=== PATIENT | female | born 1995 | race African-American/Black ===

== ENCOUNTER 2023-06-22 10:30 | Emergency (ER) | payer BC, SELFPAY ==
[2023-06-22 10:49] VITALS: BP 113/75; PULSE 111; RESP 18; TEMP 37.3; O2SAT 93; BMI 22.6
--- NOTE | 2023-06-22 11:14 | ED.GENADULT ---
HPI - General Adult General Chief complaint: Asthma Stated complaint: trouble breathing- 6 months preg. Time Seen by Provider: 06/22/23 11:12 History of Present Illness HPI narrative: hx asthma, c/o sore throat. using nebulizer . had some prednisone, used the last of it last night. symptoms started tuesday. pt , no concerns today. 27-year-old young woman here with concern of asthma exacerbation. She is also 26 weeks . She has had sore throat. No fever. Symptoms began about 3 days ago. She did start taking some residual prednisone from a prior prescription. Has also been using albuterol nebs and inhaler. Feels that she could use more of this. No abdominal pain. No unusual discharge/bleeding. Here with 2 boys who are sick ultimately who test positive for influenza A at this visit. Here also with sleeping significant other. Related Data Home Medications Medication Instructions Recorded Confirmed 06/22/23 Previous Rx's Medication Instructions Recorded albuterol sulfate 2.5 mg/0.5 mL 2.5 mg (0.5 mL) inhalation Q4H PRN 06/22/23 solution for nebulization #30 ea albuterol sulfate 90 mcg/actuation 2 inh inhalation Q2-3H PRN 06/22/23 aerosol inhaler shortness of breath or wheezing #8.5 grams oseltamivir 75 mg capsule (Tamiflu) 75 mg PO DAILY #7 caps 06/22/23 prednisone 20 mg tablet 40 mg (2 x 20 mg) PO DAILY 4 days 06/22/23 #8 tabs Allergies Allergy/AdvReac Type Severity Reaction Status Date / Time No Known Drug Allergies Allergy Verified 06/22/23 10:54 Review of Systems Status of ROS: Reports: 6 or more systems reviewed and unremarkable except as noted in History and below Exam Narrative: Exam Narrative: Pleasant. NAD but subtly labored in her breathing. Lungs with diffuse wheeze trace crepitus. Heart is in elevated rate and regular rhythm. Oxygen saturation is not at 93% on arrival. Oropharynx is moist. Posterior oropharynx not particular erythematous. Neck is supple without lymphadenopathy. No supraclavicular crepitus. Abdomen is appropriately gravid, nontender. Extremities are well perfused. No significant edema noted. Const: Vital Signs, click to edit/add: Vital Signs - 24 hr 06/22/23 10:49 Temperature 99.1 F Pulse Rate [Pulse Oximeter] 111 H Respiratory Rate 18 Blood Pressure [Ri ght Upper Arm] 113/75 Pulse Oximetry 93 Oxygen Delivery Me thod Room Air Documenting provider has reviewed patient's vital signs: yes Course Vital Signs Vital signs: Initial Vital Signs Temperature 99.1 F 06/22/23 10:49 Temperature Source Temporal Artery Scan 06/22/23 10:49 Pulse Rate 111 H 06/22/23 10:49 Respiratory Rate 18 06/22/23 10:49 Blood Pressure 113/75 06/22/23 10:49 Blood Pressure Mean 87 06/22/23 10:49 Pulse Oximetry 93 06/22/23 10:49 Oxygen Delivery Method Room Air 06/22/23 10:49 Vital Signs Temperature 99.1 F 06/22/23 10:49 Pulse Rate 111 H 06/22/23 10:49 Respiratory Rate 18 06/22/23 10:49 Blood Pressure 113/75 06/22/23 10:49 Pulse Oximetry 93 06/22/23 10:49 Oxygen Delivery Method Room Air 06/22/23 10:49 Temperature 99.1 F 06/22/23 10:49 Pulse Rate 111 H 06/22/23 10:49 Respiratory Rate 18 06/22/23 10:49 Blood Pressure 113/75 06/22/23 10:49 Pulse Oximetry 93 06/22/23 10:49 Oxygen Delivery Method Room Air 06/22/23 10:49 Medications Administered Medications: Discontinued Medications Generic Name Dose Route Start Last Admin Trade Name Freq PRN Reason Stop Dose Admin Albuterol 2.5 mg 06/22/23 11:38 06/22/23 12:02 Albuterol Sulfate 2.5 Mg/3 Ml Vial.Neb NEB 06/22/23 11:39 2.5 mg ONCE ONE Administration Medical Decision Making MDM Narrative Medical decision making narrative: With both children with febrile illness I would anticipate likely viral trigger to asthma, an already known diagnosis. Differential does include pulmonary embolus, pneumothorax, pneumonia, influenza, COVID, RSV. She would like to focus on treatment of asthma related symptoms at this time. Screening has already been done with triple swab for COVID influenza and RSV by the time I am evaluating. Was given an albuterol nebulization. Does feel better on reassessment with oxygen saturations improved to 96%. Still with trace wheeze on reauscultation. Swabs return negative. Swabs are positive though for influenza A for both children. Considering and underlying asthma with exacerbation I would recommend prophylaxis at least with Tamiflu. She is considering, hesitant, and after discussion of pros and cons, ultimately does accept prescription. Will also prescribe refills of albuterol inhaler, nebulization liquid and a course of prednisone. See patient discharge plan further discussion Lab Data Lab results reviewed: Yes I reviewed the patient's lab results Labs: Lab Results 06/22/23 Range/Units 10:39 SARS-CoV-2 (PCR) Negative SARS-CoV-2 (Negative) Influenza Type A (PCR) Negative PCR FLU A (Negative) Influenza Type B (PCR) Negative PCR FLU B (Negative) RSV (PCR) Negative PCR RSV (Negative) Discharge Plan Discharge Clinical Impression: Asthma with acute exacerbation, , Exposure to the flu Patient Disposition: Home, Self-Care Condition: Improved Additional Instructions: focus on hydration. Can take up to 1000 mg of acetaminophen per dose. will be sending an albuterol nebs and inhalers and oseltamivir as discussed. Prescriptions: New oseltamivir [Tamiflu] 75 mg capsule 75 mg PO DAILY Qty: 7 0RF albuterol sulfate 2.5 mg/0.5 mL solution for nebulization 2.5 mg inhalation Q4H PRNQty: 30 0RF Rx Instructions: for up to 3 doses albuterol sulfate 90 mcg/actuation HFA aerosol inhaler 2 inh inhalation Q2-3H PRN (Reason: shortness of breath or wheezing) Qty: 8.5 1RF prednisone 20 mg tablet 40 mg PO DAILY 4 Days Qty: 8 1RF No Action Stand Alone Forms: [employer] Info Instructions
[2023-06-22 11:47] LABS: PCR FLU A Negative PCR FLU A (Negative); PCR FLU B Negative PCR FLU B (Negative); PCR RSV Negative PCR RSV (Negative); SARS PCR* Negative SARS-CoV-2 (Negative)
[2023-06-22] MEDS: ALBUTEROL SULFATE 2.5 MG/3 ML VIAL.NEB NEB (12:02)
== END 2023-06-22 12:39 | disposition home or self-care (01) ==
PROVIDERS: Emergency Provider Family Medicine
DX: J45.901 Unspecified asthma with (acute) exacerbation (principal); Z20.828 Contact with and (suspected) exposure to other viral communicable diseases
CPT/HCPCS: 87631; 94640; 99284

== ENCOUNTER 2024-07-13 09:50 | Emergency (ER) | payer BC, SELFPAY ==
--- OUTSIDE RECORDS SUMMARY | 2024-07-13 09:52 | XMS_ITS | Encounter Summary ---
Author Organization [facility] Address [address] [place] [address] Care Team Providers Care Manager Copy Name Role Phone Mago Jimenez PA-C Primary Care Provider [phone] Mago Jimenez PA-C Unavailable [phone] Twila Gallardo DO Unavailable [phone] Tam Kerns MD Unavailable [phone] Simone Gee MD Unavailable Unavailabl Dedrick Lugo MD Unavailable [phone] Mago Jimenez PA-C Unavailable [phone] No Ref-Primary, Physician Primary Care Provider Reason for Visit * Reason Comments Medication Refill Encounter Details Date Type Department Care Team (Late st Contact Info) Description 05/14/2020 Refill [facility] [address] [place] [phone] Mago Jimenez PA-C [address] [place], [place] [phone] Medication Refill Social History Tobacco Use Types Packs/Day Years Used Date Smoking Tobacco: Never Smokeless Tobacco: Never Alcohol Use Standard Drinks/Week Comments Not Currently 0 (1 standard drink = 0.6 oz pur e alcohol) PHQ-2 Answer Date Recorded PHQ-2 Score 5 08/01/2019 Education Answer Date Recorded What is the highest level of school you have completed or the highest degree you have received? 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 Not on file Not on file documented as of this encounter Plan of Treatment Not on file documented as of this encounter Visit Diagnoses Diagnosis Mild persistent asthma with acute exacerbation Unspecified asthma, with exacerbation documented in this encounter Additional Health Concerns Infection Onset Date Last Indicated Resolved Time Rule Out COVID-19 11/15/2021 11/15/2021 11/15/2021 1:49 AM CDT Rule Out COVID-19 09/01/2023 09/01/2023 09/01/2023 5:19 PM CDT Assessment Noted Time PHQ-9 Depression Total Score: 14 020 7:03 AM CDT documented as of this encounter Care Teams Manager Copy Relationship Specialty Start Date End Date Mago Jimenez PA-C [address] [place] [address] PCP - General Physician Deblocker 04/19/19 01/07/23 No Ref-Primary, Physician PCP - General 01/08/23 Mago Jimenez PA-C [address] [place] [address] Assigned PCP 07/01/19 02/12/22 Twila Gallardo DO [address] [address] Assigned OBGYN Provider 12/21/19 Tam Kerns MD [address] [place] [address] Assigned Surgical Provider 01/23/20 07/24/21 Simone Gee MD Assigned OBGYN Provider 08/17/20 11/22/20 [place] [address] [facility] [place] [address] Assigned OBGYN Provider 11/23/20 Mago Jimenez PA-C [address] [place] [address] Assigned PCP 04/24/22 12/31/22 documented as of this encounter
--- OUTSIDE RECORDS SUMMARY | 2024-07-13 09:52 | XMS_ITS | Encounter Summary ---
Author Organization [facility] Address [address] [place] [address] Care Team Providers Care Lamp Shade Sewer Name Role Phone Kelvin Mario MD Primary Care Provider Encounter Details Date Type Department Care Team (Late st Contact Info) Description 01/12/2012 Correspondence None No Primary/Referring, Phy HME EQUIPMENT SHIP'S ENGINEER TICKET Social History Tobacco Use Types Packs/Day Years Used Date Smoking Tobacco: Never Alcohol Use Standard Drinks/Week Comments Not Asked 0 (1 standard drink = 0.6 oz pur e alcohol) Comments No Sex and Gender Information Value Date Recorded Sex Assigned at Not on file Legal Sex Female 5:22 AM CDT Gender Identity Not on file Sexual Orientation Not on file documented as of this encounter Progress Notes * No Primary/Referring, Phy - 01/12/2012 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
--- OUTSIDE RECORDS SUMMARY | 2024-07-13 09:52 | XMS_ITS | Encounter Summary ---
Author Organization [facility] Address [address] [place] [address] Care Team Providers Care Lockstitch Lining Setter Name Role Phone Mago Jimenez PA-C Primary Care Provider [phone] Mago Jimenez PA-C Unavailable [phone] Tam Kerns MD Unavailable [phone] Mago Jimenez PA-C Unavailable [phone] No Ref-Primary, Physician Primary Care Provider Encounter Details Date Type Department Care Team (Late st Contact Info) Description 07/14/2021 [facility] [address] [place] [phone] Emeli Meeks Social History Tobacco Use Types Packs/Day Years [...] on file 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 Gender Identity Not on file Sexual Orientation Not on file 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 Not on file Not on file documented as of this encounter Plan of Treatment Not on file documented as of this encounter Visit Diagnoses Not on filedocumented in this encounter Additional Health Concerns Infection Onset Date Last Indicated Resolved Time Rule Out COVID-19 11/15/2021 11/15/2021 11/15/2021 1:49 AM CDT Rule Out COVID-19 09/01/2023 09/01/2023 09/01/2023 5:19 PM CDT Assessment Noted Time PHQ-9 Depression Total Score: 14 12/25/2 020 7:03 AM CDT documented as of this encounter Care Teams Lockstitch Lining Setter Relationship Specialty Start Date End Date Mago Jimenez PA-C [address] [facility] [place] [address] PCP - General Physician Director Of Spa And Guest Experience 04/19/19 01/07/23 No Ref-Primary, Physician PCP - General 01/08/23 Mago Jimenez PA-C [address] [place] [address] Assigned PCP 07/01/19 02/12/22 Tam Kerns MD [address] [place] [address] Assigned Surgical Provider 01/23/20 07/24/21 Mago Jimenez PA-C [address] [place] [address] Assigned PCP 04/24/22 12/31/22 documented as of this encounter
--- OUTSIDE RECORDS SUMMARY | 2024-07-13 09:52 | XMS_ITS | Encounter Summary ---
Author Organization [facility] Address [address] [place] [address] Care Team Providers Care Tongue And Quarter Stitcher Name Role Phone Mago Jimenez PA-C Primary Care Provider [phone] Mago Jimenez PA-C Unavailable [phone] Tam Kerns MD Unavailable [phone] Simone Gee MD Unavailable Unavailabl Dedrick Lugo MD Unavailable [phone] Mago Jimenez PA-C Unavailable [phone] No Ref-Primary, Physician Primary Care Provider Encounter Details Date Type Department Care Team (Late st Contact Info) Description 09/04/2020 [facility] [address], [address] [place] [phone] [facility] Social History Tobacco Use Types Packs/Day Years [...] on file 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 Gender Identity Not on file Sexual Orientation [...] documented as of this encounter Care Teams Tongue And Quarter Stitcher Relationship Specialty Start Date End Date Mago Jimenez PA-C [address] [place], [place] [address] PCP - General Physician Commissions Analyst 04/19/19 01/07/23 No Ref-Primary, Physician PCP - General 01/08/23 Mago Jimenez PA-C [address] [place] [address] Assigned PCP 07/01/19 02/12/22 Tam Kerns MD [address] [place] [address] Assigned Surgical Provider 01/23/20 07/24/21 Simone Gee MD Assigned OBGYN Provider 08/17/20 11/22/20 [place] [address] [facility] [place] [phone] Assigned OBGYN Provider 11/23/20 Mago Jimenez PA-C [address] [place], [place] [address] Assigned PCP 04/24/22 12/31/22 documented as of this encounter
--- OUTSIDE RECORDS SUMMARY | 2024-07-13 09:52 | XMS_ITS | Encounter Summary ---
Author Organization [facility] Address [address] [place] [address] Care Team Providers Care Hoop Coiler Name Role Phone Mago Jimenez PA-C Primary Care Provider [phone] Mago Jimenez PA-C Unavailable [phone] Twila Gallardo DO Unavailable [phone] Tam Kerns MD Unavailable [phone] Simone Gee MD Unavailable Unavailabl Dedrick Lugo MD Unavailable [phone] Mago Jimenez PA-C Unavailable [phone] No Ref-Primary, Physician Primary Care Provider Encounter Details Date Type Department Care Team (Late st Contact Info) Description 06/13/2020 [facility] Medical Advice [address] [phone] Yandy Argueta CMA Social History Tobacco Use Types Packs/Day Years [...] on file 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 Gender Identity Not on file Sexual Orientation [...] documented as of this encounter Care Teams Hoop Coiler Relationship Specialty Start Date End Date Mago Jimenez PA-C [address] [place] [address] PCP - General Physician Line Helper 04/19/19 01/07/23 No Ref-Primary, Physician PCP - General 01/08/23 Mago Jimenez PA-C [address] [place] [address] Assigned PCP 07/01/19 02/12/22 Twila Gallardo DO [address] [address] Assigned OBGYN Provider 12/21/19 Tam Kerns MD [address] [place] [address] Assigned Surgical Provider 01/23/20 07/24/21 Simone Gee MD Assigned OBGYN Provider 08/17/20 11/22/20 [place] [address] [facility] [place] [address] Assigned OBGYN Provider 11/23/20 Mago Jimenez PA-C [address] [place] [address] Assigned PCP 04/24/22 12/31/22 documented as of this encounter
--- OUTSIDE RECORDS SUMMARY | 2024-07-13 09:52 | XMS_ITS | Encounter Summary ---
Author Organization [facility] Address [address] [place] [address] Care Team Providers Care Potato Pancake Frier Name Role Phone Johnson Dunn MD Primary Care Provider [phone] Lorna Thurman APRN SALESPERSON WIGS Unavailable Unavailable Clinic - [facility] Primary Care Provider No Ref-Primary, Physician Primary Care Provider Mago Jimenez PA-C Primary Care Provider [phone] Mago Jimenez PA-C Unavailable [phone] Twila Gallardo DO Unavailable [phone] Tam Kerns MD Unavailable [phone] Simone Gee MD Unavailable Unavailabl Dedrick Lugo MD Unavailable [phone] Mago Jimenez PA-C Unavailable [phone] No Ref-Primary, Physician Primary Care Provider Encounter Details Date Type Department Care Team (Late st Contact Info) Description 12/15/2010 [facility] [address] [place] [address] Sadiq Rivera MD [place] [facility] [address] [address] Social History Tobacco Use Types Packs/Day Years Used Date Smoking Tobacco: Never Assessed Comments Unknown Sex and Gender Information Value Date Recorded Sex Assigned at Not on file 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 Gender Identity Not on file Sexual Orientation Not on file documented as of this encounter Last Filed Vital Signs Vital Sign Reading Time Taken Comments Blood Pressure 113/68 11/20/2009 2:57 PM CDT Pulse 84 11/20/2009 2:57 PM CDT Temperature - - Respiratory Rate - - Oxygen Saturation - - Inhaled Oxygen Concentration - - Weight 54.7 kg (120 lb 9.5 oz) 11/20/2009 2:57 P M CDT Height 166.8 cm (5' 5.67) 11/20/2009 2:57 PM CD T Body Mass Index 19.66 11/20/2009 2:57 PM CDT Body Mass Index Percentile 52.19% 11/20/2009 2:5 7 PM CDT Growth Chart: [facility] (Girls, 2- 20 Years) documented in this encounter Plan of Treatment Not on file documented as of this encounter Visit Diagnoses Not on filedocumented in this encounter Additional Health Concerns Infection Onset Date Last Indicated Resolved Time Rule Out COVID-19 11/15/2021 11/15/2021 11/15/2021 1:49 AM CDT Rule Out COVID-19 09/01/2023 09/01/2023 09/01/2023 5:19 PM CDT documented as of this encounter Care Teams Potato Pancake Frier Relationship Specialty Start Date End Date Johnson Dunn MD [address] [phone] PCP - General Pediatrics 12/23/10 10/22/18 [facility] - [facility] [address] [place] [address] PCP - General 10/23/18 10/24/18 No Ref-Primary, Physician PCP - General 10/25/18 04/18/19 Mago Jimenez PA-C [address] [place] [address] PCP - General Physician Dianeticist 04/19/19 01/07/23 No Ref-Primary, Physician PCP - General 01/08/23 Lorna Thurman APRN SALESPERSON WIGS Assigned PCP 06/02/18 06/30/19 Mago Jimenez PA-C [address] [facility] [place] [address] Assigned PCP 07/01/19 02/12/22 Twila Gallardo DO [address] [place] [address] Assigned OBGYN Provider 12/21/19 Tam Kerns MD [address] [place] [address] Assigned Surgical Provider 01/23/20 07/24/21 Simone Gee MD Assigned OBGYN Provider 08/17/20 11/22/20 [place] [address] [facility] [place] [place] [phone] Assigned OBGYN Provider 11/23/20 Mago Jimenez PA-C [address] [facility] [place] [address] Assigned PCP 04/24/22 12/31/22 documented as of this encounter
--- OUTSIDE RECORDS SUMMARY | 2024-07-13 09:52 | XMS_ITS | Encounter Summary ---
Author Organization [facility] Address [address] [place] [address] Care Team Providers Care Germination Testing Manager Name Role Phone Mago Jimenez PA-C Primary Care Provider [phone] Mago Jimenez PA-C Unavailable [phone] Tam Kerns MD Unavailable [phone] Simone Gee MD Unavailable Unavailabl Dedrick Lugo MD Unavailable [phone] Mago Jimenez PA-C Unavailable [phone] No Ref-Primary, Physician Primary Care Provider Encounter Details Date Type Department Care Team (Late st Contact Info) Description 10/08/2020 [facility] Medical Advice [address] [place] [phone] Machelle Miller Social History Tobacco Use Types Packs/Day Years [...] on file 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 Gender Identity Not on file Sexual Orientation [...] documented as of this encounter Care Teams Germination Testing Manager Relationship Specialty Start Date End Date Mago Jimenez PA-C [address] [place], [place] [address] PCP - General Physician Valve Maker 04/19/19 01/07/23 No Ref-Primary, Physician PCP - General 01/08/23 Mago Jimenez PA-C [address] [place] [address] Assigned PCP 07/01/19 02/12/22 Tam Kerns MD [address] [place] [address] Assigned Surgical Provider 01/23/20 07/24/21 Simone Gee MD Assigned OBGYN Provider 08/17/20 11/22/20 [place] [address] [facility] [place] [phone] Assigned OBGYN Provider 11/23/20 Mago Jimenez PA-C [address] [place], [place] [address] Assigned PCP 04/24/22 12/31/22 documented as of this encounter
--- OUTSIDE RECORDS SUMMARY | 2024-07-13 09:52 | XMS_ITS | Encounter Summary ---
Author Organization [facility] Address [address] [place] [address] Care Team Providers Care Sales Representative [employer] Name Role Phone Mago Jimenez PA-C Primary Care Provider [phone] Mago Jimenez PA-C Unavailable [phone] Tam Kerns MD Unavailable [phone] Mago Jimenez PA-C Unavailable [phone] No Ref-Primary, Physician Primary Care Provider Reason for Visit * Reason Comments Medication Refill Encounter Details Date Type Department Care Team (Late st Contact Info) Description 07/11/2021 Refill [facility] [address] [facility] [address] [place] [phone] Mago Jimenez PA-C [address] [place] [address] Medication Refill Social History Tobacco Use Types [...] on file Legal 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 IMPLEMENTATION ADVISOR Gender Identity Not on file Sexual Orientation [...] documented as of this encounter Care Teams Sales Representative [employer] Relationship Specialty Start Date End Date Mago Jimenez PA-C [address] [place] [address] PCP - General Physician Oil Field Rig Builder 04/19/19 01/07/23 No Ref-Primary, Physician PCP - General 01/08/23 Mago Jimenez PA-C [address] [place], [place] [address] Assigned PCP 07/01/19 02/12/22 Tam Kerns MD [address] [place] [address] Assigned Surgical Provider 01/23/20 07/24/21 Mago Jimenez PA-C 290 [place] [address] Assigned PCP 04/24/22 12/31/22 documented as of this encounter
--- OUTSIDE RECORDS SUMMARY | 2024-07-13 09:52 | XMS_ITS | Clinical Summary ---
Author Organization [facility] Address [address] [place] [id number] Care Team Providers Care Student Services Vice President Name Role Phone No Ref-Primary, Physician Primary Care Provider Allergies Active Allergy Reactions Criticality Noted Date Comments Bee Pollen Itching Medium 12/14/2010 Fish-Derived Products Shortness Of Breath High 10/20 Pollen Extract 12/14/2010 Medications Vit-Fe Fumarate-FA ( MULTIVITAMIN W/IRON) 27-0.8 MG tablet Take 1 tablet by mouth daily Active ipratropium - albuterol 0.5 mg/2.5 mg/3 mL (DUONEB) 0.5-2.5 (3) MG/3ML neb solution Take 1 vial (3 mLs) by nebulization every 6 hours as needed for shortness of breath, wheezing or cough 60 mL 3 Active albuterol (PROAIR HFA/PROVENTIL HFA/VENTOLIN HFA) 108 (90 Base) MCG/ACT inhaler Inhale 2 puffs into the lungs every 6 hours as needed for shortness of breath, wheezing or cough Active fluticasone-chidi nterol (BREO ELLIPTA) 200-25 MCG/ACT inhalerIndicatio ns:Mild persistent asthma without complication Inhale 1 puff into the lungs daily 28 each 1 4 Active Active Problems Problem Noted Date Diagnosed Date Moderate persistent asthma with exacerbation 05/2023 Third trimester 09/01/2023 Mild persistent asthma without complication 05/30 Juvenile idiopathic scoliosis 06/26/2018 Gastroesophageal reflux disease without esophagi tis 06/26/2018 Sickle cell trait Resolved Problems Problem Noted Date Diagnosed Date Resolved Date Normal in third trimester 02/12/2019 08/02/2019 Overview (05/23/2019): Boy. Immunizations Immunization Administration Dates Next Due HIB (PRP-T) 12/14/1999, 7,1995,1995 HepB, Unspecified 02/08/1996,1995,10/09/18 96 Historical DTP/aP 11/11/1999, 6,01/22/1996,1995,1995 Hpv, Unspecified 11/15/2008,06/17/2008, 9 Influenza (intradermal) 02/06/2011,01/02,11/15/2008,2006 MMR (MMRII) 01/02/2010,12/14/1999,06/04/1996 Meningococcal,unspecified 04/16/2008 Polio, Unspecified 01/02/2010, 6,1995,1995 Tdap (Adult) Unspecified Formulation 04/16/2008 Varicella (Varivax) 06/04/1996 Family History Medical History Relation Comments Asthma Father Asthma Maternal Grandfather No Known Problems Maternal Grandmother Asthma Mother Hypertension Mother No Known Problems Paternal Grandfather No Known Problems Paternal Grandmother No Known Problems Sister Relation Status Comments Father Alive Maternal Grandfather Maternal Grandmother Mother Alive Paternal Grandfather Paternal Grandmother Sister Alive Social History Tobacco Use Types Packs/Day Years Used Date Smoking Tobacco: Never Smokeless Tobacco: Never Tobacco Cessation:Counseling Given: No Alcohol Use Standard Drinks/Week Comments Not Currently 0 (1 standard drink = 0.6 oz pur e alcohol) PHQ-2 Answer Date Recorded PHQ-2 Score 5 08/01/2019 Adolescent Education Answer Date Record ed Getting School Help Needed Not on file 11/27 Education Answer Date Recorded What is the highest level of school you have completed or the highest degree you have received? 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 Not on file Not on file Last Filed Vital Signs Vital Sign Reading Time Taken Comments Blood Pressure 115/66 09/03/2023 10:00 AM CDT Pulse 105 09/03/2023 10:00 AM CDT Temperature 37 C (98.6 F) 09/03/2023 10:00 AM CDT Respiratory Rate 18 09/03/2023 10:00 AM CDT Oxygen Saturation 92% 09/03/2023 8:20 AM CDT Inhaled Oxygen Concentration - - Weight 75.3 kg (166 lb) 09/01/2023 11:16 PM CDT Height 170.7 cm (5' 7.2) 09/01/2023 11:16 PM CD T Body Mass Index 25.84 09/01/2023 11:16 PM CDT Plan of Treatment Health Maintenance Due Date Last Done Comments ADVANCE CARE PLANNING 1995 ANNUAL REVIEW OF HM ORDERS 1995 ASTHMA ACTION PLAN 1995 YEARLY PREVENTIVE VISIT 08/08/1998 Pneumococcal Vaccine: Pediatrics (0 to 5 Years) and At-Risk Patients (6 to 49 Years) (1 of 2 - PCV) 08/08/2014 ASTHMA CONTROL TEST 06/25/2020 12/26/2019, 04/27/2019, 08/23/2018, Additional history exists COVID-19 Vaccine ( - season) 2023 PHQ-2 (once per calendar year) 2024 12/26/2019, 08/01/2019, 08/01/2019, Additional history exists PAP 06/24/2024 06/24/2021, 11/29, 12/19/2018 INFLUENZA VACCINE (Season Ended) 2024 02/06/2011, 02/06/2011, 01/02/2010, Additional history exists DTAP/TDAP/TD IMMUNIZATION (8 - Td or Tdap) 02/04/2031 02/04/2021, 04/16/2014, 04/16/2008, Additional history exists ZOSTER IMMUNIZATION (1 of 2) 08/08/2045 MENINGITIS IMMUNIZATION Aged Out 04/16/2008 No l onger eligible based on patient's age to complete this topic HPV IMMUNIZATION Completed 11/15/2008, , 04/16/2008 HEPATITIS B IMMUNIZATION Completed 023, 08/24/2022, 02/08/1996, Additional history exists CHLAMYDIA SCREENING Discontinued 12/30/2022, 06/24/2021, 12/19/2018, Additional history exists HEPATITIS C SCREENING Completed 03/23/2023, 023 HIV SCREENING Completed 03/23/2023, 03/2022, 09/24/2020, Additional history exists Procedures Procedure Name Priority Date/Time Associated Diagnosis Comments HIV ANTIGEN ANTIBODY COMBO Routine 12/19/2018 2:57 PM CDT First , second trimester Screen for STD (sexually transmitted disease) PAP IMAGED THIN LAYER SCREEN Routine 12/19/2018 2:54 PM CDT Pap smear for cervical cancer screening CHLAMYDIA TRACHOMATIS PCR Routine 12/19/2018 2:50 PM CDT Screen for STD (sexually transmitted disease) from Last 3 Months or Most Recently Relevant to Health Maintenance Results * HIV Antigen Antibody Combo (12/19/2018 2:57 PM CDT) HIV Antigen Antibody Combo Nonreactive NR^Nonrea ctive 12/20/2018 10:17 AM CDT [facility] Comment:HIV-1 p24 Ag & HIV-1 /HIV-2 Ab Not Detected Blood specimen (specimen) 12/19/2018 2:57 PM CDT 12/19/2018 2:58 PM CDT us Domingo Fishman MD LAB - BLOOD ORDERABLES Final Result [facility] [address] [place] [address] * Pap imaged thin layer screen only - recommended age 21 - 24 years (12/19/2018 2:54 PM CDT) PAP NIL KIRSTIN Rolon Report Patient Name: MAGDIEL AYALA MR#: [id number] Specimen #: [id number] Collected: 12/19/2018 Received: 12/20/2018 Reported: 12/21/2018 13:05 Ordering Phy(s): DOMINGO FISHMAN For improved result formatting, select 'View Enhanced Report Format' under Linked Documents section. SPECIMEN/STAIN PROCESS: Pap imaged thin layer prep screening (Surepath, FocalPoint with guided screening) Pap-Cyto x 1 SOURCE: Cervical, endocervical Pap imaged thin layer prep screening (Surepath, FocalPoint with guided screening) SPECIMEN ADEQUACY: Satisfactory for evaluation. -Transformation zone component present. CYTOLOGIC INTERPRETATION: Negative for intraepithelial lesion or malignancy Electronically signed out by: Jet PATTERSON, (ASCP) CLINICAL HISTORY: LMP: 08/07/2018 , Papanicolaou Test Limitations: Cervical cytology is a screening test with limited sensitivity; regular screening is critical for cancer prevention; Pap tests are primarily effective for the diagnosis/preventi on of squamous cell carcinoma, not adenocarcinomas or other cancers. COLLECTION SITE: Client: [facility] Location: [facility] (B) The technical component of this testing was completed at the [facility], with the professional component performed at the [facility], [address] [place] [id number] ([phone]) [facility] Cytologic material (specimen) 12/19/2018 2:54 PM CDT 12/20/2018 8:52 AM CDT us Domingo Fishman MD LAB - OPT[facility] Gayathri COLMENARES Final Result [facility] * Chlamydia trachomatis PCR (12/19/2018 2:50 PM CDT) Specimen Description Cervix 12/19/2018 3:29 PM CDT [facility] Chlamydia Trachomatis PCR Negative NEG^Negat erasmo 12/20/2018 12:50 PM CDT [facility] Comment: Negative for C. trachomatis rRNA by insurance loss control surveyor mediated amplification. A negative result by insurance loss control surveyor mediated amplification does not preclude the presence of C. trachomatis infection because results are dependent on proper and adequate collection, absence of inhibitors, and sufficient rRNA to be detected. Specimen from uterine cervix (specimen) 12/19/2018 2:50 PM CDT 12/19/2018 3:29 PM CDT Domingo Fishman MD LAB - MICRO GENERAL ORD ERABLES Final Result [facility] [address] [place], [place] [id number] [id number] from Last 3 Months or Most Recently Relevant to Health Maintenance Insurance [employer] [place] Advance Directives For more information, please contact: [phone] * Full Code (Latest Code Status on File) Date Activated Date Inactivated Comments 09/01/2023 11:25 PM 09/03/2023 3:20 PM All basic and advanced life-sustaining interventions are performed as appropriate Question Answer Comments Code status determined by: Discussion with patie nt/ legal decision maker Care Teams Student Services Vice President Relationship Specialty Start Date End Date No Ref-Primary, Physician PCP - General 01/08/23
--- OUTSIDE RECORDS SUMMARY | 2024-07-13 09:52 | XMS_ITS | Clinical Summary ---
Author Organization [facility] Address [address] [place] [address] Care Team Providers Care Wax Pourer Name Role Phone Katlin Borden Marjorie [facility] Unavailable [phone] Dee Ibarra CN Primary Care Provide r Allergies Active Allergy Reactions Criticality Noted Date Comments Bee Pollen Itching Medium 12/14/2010 Fish Containing Products Dyspnea High 10/20/2018 Medications multivitamin () 27 mg iron- 800 mcg folicIndications :Supervision of high risk , antepartum (HC) Take 1 Tablet by mouth once daily with a meal. 60 Tablet 3 4 Active cetirizine (ZYRTEC) 10 mg tabletIndication s:Exacerbation of asthma, unspecified asthma severity, unspecified whether persistent (HC) Take 1 Tablet (10 mg) by mouth once daily. 30 Tablet 4 Active Breast Pump PurchaseIndicati ons: disorder, delivered (HC) Electric breast pump for home use. Gestational age at delivery: term weeks. Reason for need: pumping. Length of need: 99 months (lifetime use) 1 Each 4 Active albuterol-ipratr opium (DUONEB) (2.5-0.5 mg) in 3 mL NEBULIZATION solutionIndicati ons:Asthma with acute exacerbation, unspecified asthma severity, unspecified whether persistent (HC),Moderate persistent asthma with acute exacerbation (HC) Inhale 3 mL via a nebulizer 4 times daily. 540 mL 1 4 Active fluconazole (DIFLUCAN) 150 mg tabletIndication s:Chronic vaginitis,Yeast infection 150 mg tablet by mouth one time. Repeat dose in 3 days. 2 Tablet 4 Active metroNIDAZOLE (FLAGYL) 500 mg tabletIndication s:BV (bacterial vaginosis) Take 1 Tablet (500 mg) by mouth two times daily. 14 Tablet 4 Active fluticasone (50 mcg per actuation) nasal solution (FLONASE)Indicat ions:Seasonal allergies Inhale 2 Sprays in both nostrils once daily. 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 Moderate persistent asthma with acute exacerbati on 06/26/2018 Overview (11/16/2021): 09/24/2020 - albuterol inhaler only (at this time) up to once a day. 09/24/2020 - Family Medicine referral. Asthma 01/23/2002 Overview (09/20/2023): hospitalized >3 times Asthma Action Plan (01/18/07) Asthma Severity: persistent Symptom Triggers: pollens, animal dander, change in weather, exercise, URI and molds/dust GREEN ZONE The GREEN ZONE means take the following medicine(s) every day. Controller Medicine(s)and Dose(s) Advair 100/50, 1 puff twice daily Singulair 5 mg every evening For acute relief of cough and wheezing or before exercise take albuterol inhaler 2 puffs. YELLOW ZONE The YELLOW ZONE means take these medications in addition to your GREEN zone medications to help keep the asthma symptoms from getting worse Reliever Medicine(s) and Dose(s) Albuterol inhaler, 2 puffs every 4-6 hours as needed for cough/wheeze RED ZONE The RED ZONE means start taking your RED ZONE medicine(s) AND call your Doctor NOW! Reliever Medicine(s) and Dose(s) Prednisolone liquid 30 mg twice daily for 5 days PLUS the medications listed in the YELLOW Zone Idiopathic scoliosis and kyphoscoliosis 01/24/20 02 Resolved Problems Problem Noted Date Diagnosed Date Resolved Date headache in third trimester 09/23/2023 10/19/2023 High-risk in third trimester 09/13/2023 10/19/2023 Third trimester 09/01/2023 renal anomaly, single gestation 06/01/2023 10/19/2023 Overview (08/02/2023): Those that may wait to be evaluated by urology consult: Duplicated collecting system without UTD: KENNEDI by PMD 1-6mos. [facility] Supervision of high-risk 03/24/2023 10/19/2023 Overview (08/03/2023): ADDITIONAL SRO GC - Completed [x] Patient name: Magdiel Ayala : 1995 Age: 27 y.o. Date of SRO: 08/03/2023 Estimated Date of Delivery: 09/23/23 Gest Age: 32w5d G/P: Current BMI: REFERRING PROVIDER/CLINIC LOCATION/FAX #: Nataliia Berumen CNM Primary MD approves scheduling of recommended ultrasounds/testing: Not specified Requested Discussion Topics: Hx of two children with duplicate renal arteries. Desires genetic assessment. Please schedule the following: [] Lozano [] Multiples: [] Consult [] Ultrasound: - N/A [] Lab: [x] Genetic Counseling [] Before [] After []15 [] 30 [x]45 []NT []CVS []Amnio [] BMI > 40 [] Instructor Substitute Cosmetology - Language [] [place] Insurance: Location Specialty Days Any [facility] Clinic [x] In-person [x] Virtual [x] Either N/A Comments: Met with MR earlier in preg - now this preg noted to have duplicate renal artery and would like further discussion, possibly plan for testing? RN: Autos Disassembler: GC: Loulou Heath MS, BRYNN MD/Provider: Date:08/03/2023 Urgency: Routine (4-10) [x]Can be sooner [] Can be split Magdiel Ayala : 1995 [facility] ULTRASOUND/TESTING PATIENT Support person name: Instructor Substitute Cosmetology: No ULTRASOUND TYPE: 08/01 growth REASON FOR VISIT: Dilation of the upper/lower pole of the left/right kidney is seen. Suspect duplication of the kidney NEXT VISIT ALERTS: Final MARAI TERESA by Early Ultrasound LMP Date: Patient's last menstrual period was 12/23/2022 (approximate). MARIA TERESA: 09/29/23 Early US: Date: 03/01/23 GA: 10w4d MARIA TERESA: 09/23/23 PrePregnancy Weight: 140 lb Height: 67.5 BMI: 21.62 PLANS & FUTURE APPOINTMENTS: ULTRASOUND/GROWTH PLAN: - Growth: Next TESTING PLAN: - Testing: Through DELIVERY PLAN: - Scheduled delivery: - Preferred delivery location: PRIMARY DIAGNOSIS: 27 y.o. Estimated Date of Delivery: 09/23/23 Depression (Lexapro) Sickle cell trait (FOB negative) Uterine leiomyoma Asthma 2020 Term VAVD 2021 Term (baby with left duplicated renal artery) PREVIOUS ULTRASOUNDS: 08/02/23 32w4d 06/01/23 23w5d EFW 587 grams, percentile: 30. ECHO: REFERRING PHYSICIAN/PHONE/LAST UPDATE: Katlin Borden CNM - Adolph [place] Primary MD approves scheduling of recommended ultrasounds/testing: Yes SPECIALISTS/CONSULTS: Include: Specialty MD Clinic Name Phone# [place] and ADDED TO PATIENT CARE TEAM No GENETICS: NIPT: Low risk female CARE COORDINATION: PERTINENT LABS: Blood type: B Rh Positive Antibody screen: Negative PERTINENT MEDS: Lexapro PROCEDURES: PLAN OF CARE: Original and updated POC 05/31 per RECOMMENDATIONS: -Return to primary provider for continued care. -Follow up ultrasound at 32 weeks to reevaluate left kidney and growth -Patient directed to schedule at the front desk officer on the way out, or to call [facility] within 2 business days to schedule follow up. -A Pediatric Urology consultation will be arranged via the [facility] as needed, following the next ultrasound. . High risk , antepartum 02/04/2023 10/19/2023 Overview (07/05/2023): Images from the original note were not included. Adolph RODRÍGUEZ - at [facility] Name [facility] 27 y.o. Final Estimated Date of Delivery: 09/23/2023 by 10 week ultrasound FOB: Aron sex: _ High Risk? 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) noted at [facility] on 06/01/23 -Follow up ultrasound scheduled for 32w per [facility] -Pediatric urology consult following 32w ultrasound as indicated ([facility] to confirm); surgery may be indicated Overview: GA at 1OB: ~5w6d Blood type: B positive ([facility]) Pre-gravid BMI 21.59, goal TWG 11.5 kg (25 lb)-16 kg (35 lb) at term [facility] consult: No Level 2 anatomy US: No Maternal carrier screens: No genetic screens: No Early GDM screen indicated: No Aspirin 81 mg indicated: No HSV: No Smoker: No Domestic violence: Declines Accepting of blood products: _ Code status: Full Code Imagin03/01/2023: 1st trimester ultrasound. Single living IUP at 10w4d, EDC 09/23/2023. 06/01/2023: Level II [facility]AS. IUP at 23w5d, cephalic presentation. EFW 587g, 30%tile. Possible duplication of collecting system in left kidney. Recommend follow up u/s at 32w to reevaluate left kidney and growth; pediatric urology consult may be indicated after next ultrasound. Vaccines: Flu: _ Pertussis: _ COVID-19: _ Depression Screens: 12/30/2022 1:00 PM 02/02/2023 3:00 PM DOC [facility] PHQ9 TOTAL SCORE PHQ-9 TOTAL SCORE 12 22 Depression Severity Level moderate severe .phq Anxiety Screens: 02/02/2023 3:00 PM MARCOS-7 ANXIETY SCREENING MARCOS date (doc flow) 02/02/2023 Nervous, anxious 3 Cannot stop worrying 3 Worry about different things 3 Cannot relax 3 Feeling restless 0 Easily annoyed/irritated 2 Afraid of awful event 1 Score 15 Severity severe anxiety Immunizations Immunization Administration Dates Next Due DTP 11/11/1999, 6,01/22/1996,1995,1995 HIB HbOC (HibTITER) 12/14/1999, 7,1995,1995 HIB PRP-T (ActHIB,Hiberix) 12/14/1999,,1995,1995 Hep B (Hepatitis B (Adult) Recombinant Adjuvanted) 09/24/2022 Hepatitis B (Adult) 08/24/2022 Hepatitis B (Peds) 02/08/1996,1995, 996 Human Papilloma Virus Vaccin e, Unspecified 11/15/2008,06/17/2008,04/16/2008 Inactivated Polio Vaccine 01/02/2010 Influenza Virus, Unspecified 02/06/2011, 01/02/2010,11/15/2008,2006 Influenza, Intradermal, Quad rivalent, Pf 02/06/2011,01/02/2010,11/15/2008,2006 Influenza,LAIV4 Live Intrana tamara (Flumist) 01/02/2010 MMR 01/02/2010,12/14/1999,06/04/1996 Meningococcal, Unspecified 04/16/2008 Oral Polio Vaccine 02/08/1996,1995, 996 Polio Virus, Unspecified 01/02/2010,01/28,1995,1995 TD, UNSPECIFIED 04/16/2008 Td (Age >=7 Years) 04/16/2008 Td, Preservative Free (age > = 7 Years) 04/16/2014 Tdap 02/04/2021,04/16/2008 Varicella Vaccine 06/04/1996 Family History Medical History Relation Name Comments Asthma Father Asthma Mother Hypertension Mother gestational No Known Problems Sister Clotting disorder No Family History Diabetes No Family History Miscarriages / Stillbirths No Family History Relation Name Status Comments Father Mother Alive Sister Social History Tobacco Use Types Packs/Day Years Used Date Smoking Tobacco: Never Passive Smoke Exposure: Never Smokeless Tobacco: Never Tobacco Cessation:Counseling Given: No Alcohol Use Standard Drinks/Week Comments Not Currently 0 (1 standard drink = 0.6 oz pure alcohol) not since positive test PHQ-2 Answer Date Recorded PHQ-2 TOTAL SCORE 2 11/17/2023 Social Connections Answer Date Recorded Do you often feel lonely or isolated from those around you? 0 09/24/2023 Financial Resource Strain Answer Date R ecorded Difficulty of Paying Living Expenses 2 12/29/2022 Difficulty of Paying Living Expenses 1 12/29/2022 Food Insecurity Answer Date Recorded Do you worry your food will run out before you are able to buy more? 1 09/24/2023 Transportation Needs Answer Date Record ed Does lack of transportation keep you from medica l appointments? 1 09/24/2023 Does lack of transportation keep you from work, meetings or getting things that you need? 1 09/24/2023 Housing Stability Answer Date Recorded What is your housing situation today? 1 09/24/2023 Interpersonal Safety Answer Date Record ed Are you being hit, kicked, p ushed or yelled at (see row info)? No 09/24/2023 Interpersonal Safety Abuse 12 - 18 Not on file 09/24/2023 Interpersonal Safety Ambulatory Vulnerability No t on file 09/24/2023 Utilities Answer Date Recorded Do you have trouble paying f or utilities (for example, heat, electricity, water, phone)? 2 09/24/2023 Comments No Sex and Gender Information Value Date Recorded Sex Assigned at Not on file Legal Sex Female 7:12 AM CONSTRUCTION SUPERVISOR Gender Identity Not on file Sexual Orientation Not on file Obstetrics History Para Term AB IAB SAB Ectopic Multiple Livin g Live Births 4 3 3 0 1 0 0 0 0 3 3 Date Outcome GA Total Labor Labor/2nd/3rd Weight Sex Type Anes PTL Tabitha A1 A5 Name Clin 2019 Term 39w 2d 5h 26m 5h 12m/0h 11m/0h 03m 3.57 kg (7 lb 14 oz) M Vag-Va cuum Epidur al N Livin g 9 9 [facility] [place] Comments:Spontaneous l abor, augmented with Pitocin. Vacuum assisted vaginal delivery at 39w2d. QBL 269 mL. 2019 AB ELECTI VE AB Comments:Pill, no comp lications 2021 Term 40w 1d 17h 31m 17h 16m/0h 10m/0h 05m 4.22 kg (9 lb 4.8 oz) M Vag-Sp ont Epidur al N Livin g 8 8 OGBOI N,BB ROJELIO crowell MD Complications:None Delivery Location:[facility]al ([facility]) Comments:Elective ynes ction. Complicated 2nd degree perineal lac, left labial vulvar hematoma. QBL 400 mL. complications: left duplicated renal artery in fetus, CT during , sickle cell trait (partner/FOB negative), GBS+. 2023 Term 40w 2d 15h 03m 14h 49m/0h 07m/0h 07m 3.54 kg (7 lb 12.9 oz) F Vag-Sp ont Epidur al Livin g 7 9 Miranda Alas i, CNM Complications:Shoulder Dysto fidelina, Intolerance Delivery Location:Hospital ( OKD 2000 L&D TRIAGE) Last Filed Vital Signs Vital Sign Reading Time Taken Comments Blood Pressure 120/76 02/16/2024 2:05 PM CONSTRUCTION SUPERVISOR Pulse 82 02/16/2024 2:05 PM CONSTRUCTION SUPERVISOR Temperature 37.1 C (98.8 F) 09/30/2023 1:30 PM CDT Respiratory Rate 16 02/16/2024 2:05 PM CONSTRUCTION SUPERVISOR Oxygen Saturation 98% 02/16/2024 2:05 PM CONSTRUCTION SUPERVISOR Inhaled Oxygen Concentration - - Weight 72.1 kg (159 lb) 02/16/2024 2:05 PM CONSTRUCTION SUPERVISOR Height 170.2 cm (5' 7) 02/16/2024 2:05 PM CONSTRUCTION SUPERVISOR Body Mass Index 24.9 02/16/2024 2:05 PM CONSTRUCTION SUPERVISOR Plan of Treatment Upcoming Encounters Date Type Department Care Team (Late st Contact Info) Description 07/16/2024 1:30 PM CDT Telemedicine [facility] [address] [place] [address] Betsy More [facility] [address] [place] [address] Health Maintenance Due Date Last Done Comments Pneumococcal series for age 6-49 (1 of 2 - PCV) 08/08/2014 COVID-19 vaccine series ( - season) 2023 Pap test for age 21-65 06/24/2024 2 (Verified in Care Everywhere or Patient Record) Influenza Vaccine (Season Ended) 2024 02/06/2011, 02/06/2011, 01/02/2010, Additional history exists Depression screening for age 12+ 11/16/2024 11/17/19 24 BMI (ht and wt on same day) for age 18+ 02/15/2025 02/16/2024, 11/17/2023, 12/07/2022, Additional history exists Tetanus booster 02/04/2031 02/04/2021, 03/31, 04/16/2008, Additional history exists Tdap Completed 02/04/2021, 04/16/2008 HIV for age 15-65 Completed 03/23/2023, 12/30/2022 Hepatitis C screening for ag e 18-79 Completed 03/23/2023, 12/30/2022 Procedures Procedure Name Priority Date/Time Associated Diagnosis Comments ANTI HIV 1/2 Routine 03/23/2023 2:57 PM CONSTRUCTION SUPERVISOR Supervision of high risk , antepartum (HC) ANTI HCV Routine 03/23/2023 2:57 PM CONSTRUCTION SUPERVISOR Supervision of high risk , antepartum (HC) from Last 3 Months or Most Recently Relevant to Health Maintenance Results * ANTI HCV (03/23/2023 2:57 PM CONSTRUCTION SUPERVISOR) HEPATITIS C ANTIBODY Non-Reacti ve Non-React erasmo 03/23/2023 9:41 PM CONSTRUCTION SUPERVISOR [facility] Comment:Please note, per www .CDC.gov: If a patient is known to be at high risk of HCV infection, or is symptomatic, and the physician's suspicion of HCV infection is high, HCV RNA testing is often employed and is of diagnostic value, even after an initial negative anti-HCV test result. Blood BLOOD SPECIMEN / Unknown Venipuncture / Unknown 03/23/2023 2:57 PM CONSTRUCTION SUPERVISOR 03/23/2023 2:57 PM CONSTRUCTION SUPERVISOR Katlin Borden CNM SEND OUTS Final Re sult Performing Organization Address [facility] Co de Phone Number [facility] [address] [place] [address], * ANTI HIV 1/2 (03/23/2023 2:57 PM CONSTRUCTION SUPERVISOR) Pathologist [facility] HIV-1/HIV-2 SCREEN Non-Reacti ve Non-Reacti ve 03/23/2023 9:28 PM CONSTRUCTION SUPERVISOR [facility] Comment:HIV-1 p24 and HIV-1/ HIV-2 Ab Not Detected. Blood BLOOD SPECIMEN / Unknown Venipuncture / Unknown 03/23/2023 2:57 PM CONSTRUCTION SUPERVISOR 03/23/2023 2:57 PM CONSTRUCTION SUPERVISOR Katlin Borden CNM SEND OUTS Final Re sult Performing Organization Address City/[facility]/ZIP Co de Phone Number [facility] [address] [place] [address], from Last 3 Months or Most Recently Relevant to Health Maintenance [place] [address] [place], [place] [address]CARE ID Advance Directives * Full Code (Latest Code Status on File) Date Activated Date Inactivated Comments 09/24/2023 4:54 PM 09/26/2023 10:38 PM Question Answer Comments Code Status Discussion: Reviewed Preferences Care Teams Wax Pourer Relationship Specialty Start Date End Date Dee Ibarra CNM [address] [place] [address] PCP - General Certified Nurse Assembler [employer] 11/08/23 Katlin Borden CNM [address] [facility] [place] [address] Certified Nurse Assembler [employer] 03/24/23
--- OUTSIDE RECORDS SUMMARY | 2024-07-13 09:52 | XMS_ITS | Encounter Summary ---
Author Organization [facility] Address [address] [place] [address] Care Team Providers Care Cover Cutter Machine Name Role Phone Mago Jimenez PA-C Primary Care Provider [phone] Mago Jimenez PA-C Unavailable Tam Kerns MD Unavailable [phone] Simone Gee MD Unavailable Unavailabl Dedrick Lugo MD Unavailable [phone] Mago Jimenez PA-C Unavailable [phone] No Ref-Primary, Physician Primary Care Provider Encounter Details Date Type Department Care Team (Late st Contact Info) Description 09/24/2020 My[facility] Medical Advice [address] [place] [phone] Daxa Carbajal Social History Tobacco Use Types Packs/Day Years [...] on file Legal 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 MATHEMATICS TECHNICIAN Gender Identity Not on file Sexual Orientation [...] documented as of this encounter Care Teams Cover Cutter Machine Relationship Specialty Start Date End Date Mago Jimenez PA-C [address] [place], [place] [phone] PCP - General Physician Business Test Analyst 04/19/19 01/07/23 No Ref-Primary, Physician PCP - General 01/08/23 Mago Jimenez PA-C [address] [place] [address] Assigned PCP 07/01/19 02/12/22 Tam Kerns MD [address] [place] [address] Assigned Surgical Provider 01/23/20 07/24/21 Simone Gee MD Assigned OBGYN Provider 08/17/20 11/22/20 [place] [address] [facility] [address] [place] [phone] Assigned OBGYN Provider 11/23/20 Mago Jimenez PA-C [address] [place], [place] [address] Assigned PCP 04/24/22 12/31/22 documented as of this encounter
--- OUTSIDE RECORDS SUMMARY | 2024-07-13 09:52 | XMS_ITS | Encounter Summary ---
Author Organization [facility] Address [address] [place] [address] Care Team Providers Care Autopsy Assistant Name Role Phone Kelvin Mario MD Primary Care Provider Encounter Details Date Type Department Care Team (Late st Contact Info) Description 07/11/2002 [facility] [address] [address] Jose Jones MD [address] [place], [place] [address] ASTHMA, UNSPECIFIED Social History Tobacco Use Types Packs/Day Years Used Date Smoking Tobacco: Never Alcohol Use Standard Drinks/Week Comments No 0 (1 standard drink = 0.6 oz pur e alcohol) Comments No Sex and Gender Information Value Date Recorded Sex Assigned at Not on file Legal Sex Female 5:22 AM CDT Gender Identity Not on file Sexual Orientation Not on file documented as of this encounter Plan of Treatment Upcoming Encounters Date Type Department Care Team (Late st Contact Info) Description 07/24/2024 3:00 PM CDT Appointment [facility] [address] [place] [phone] [place] [address] [place], [place] [phone] documented as of this encounter Visit Diagnoses Diagnosis Unspecified asthma(493.90) ([facility]) Unspecified asthma documented in this encounter Care Teams Autopsy Assistant Relationship Specialty [place] [address] [place] [address] PCP - General Family Practice 12/29/23 documented as of this encounter
--- OUTSIDE RECORDS SUMMARY | 2024-07-13 09:52 | XMS_ITS | Encounter Summary ---
Author Organization [facility] Address [address] [place] [address] Care Team Providers Care Necktie Operator Pockets And Pieces Name Role Phone Mago Jimenez PA-C Primary Care Provider [phone] Mago Jimenez PA-C Unavailable [phone] Tam Kerns MD Unavailable [phone] Simone Gee MD Unavailable Unavailabl Dedrick Lugo MD Unavailable [phone] Mago Jimenez PA-C Unavailable [phone] No Ref-Primary, Physician Primary Care Provider Reason for Visit * Reason Comments Medication Refill Encounter Details Date Type Department Care Team (Late st Contact Info) Description 09/23/2020 Refill [facility] [address] [facility] [address] [place] [phone] Mago Jimenez PA-C [address] [place], [place] [phone] Medication Refill Social History Tobacco Use Types [...] on file Legal 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 HOSE MENDER Gender Identity Not on file Sexual Orientation Not on file 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 Mago Jimenez PA-C * Telephone Encounter - Ham Sy RN - 09/24/2020 12:39 PM CDT Pending Prescriptions: Disp Refills albuterol (PROAIR HFA/PROVENTIL HFA/VENTOL*18 g 0 Sig: INHALE 2 PUFFS INTO THE LUNGS EVERY 4 HOURS NEEDED FOR SHORTNESS OF BREATH OR DIFFICULT BREATHING OR WHEEZING Routing refill request to provider for review/approval because: Joann given x1 and patient did not follow up, please advise documented in this encounter Plan of Treatment [...] documented as of this encounter Care Teams Necktie Operator Pockets And Pieces Relationship Specialty Start Date End Date Mago Jimenez PA-C [address] [place] [place] [address] PCP - General Physician Basketballs And Footballs Reverser 04/19/19 01/07/23 No Ref-Primary, Physician PCP - General 01/08/23 Mago Jimenez PA-C [address] [place] [address] Assigned PCP 07/01/19 02/12/22 Tam Kerns MD [address] [place] [address] Assigned Surgical Provider 01/23/20 07/24/21 Simone Gee MD Assigned OBGYN Provider 08/17/20 11/22/20 [place] [address] [facility] [place] [phone] Assigned OBGYN Provider 11/23/20 Mago Jimenez PA-C [address] [place] [address] Assigned PCP 04/24/22 12/31/22 documented as of this encounter
--- OUTSIDE RECORDS SUMMARY | 2024-07-13 09:52 | XMS_ITS | Encounter Summary ---
Author Organization [employer] Address [address] [place] [address] Care Team Providers Care Fishing Hand Name Role Phone Kelvin Mario MD Primary Care Provider Encounter Details Date Type Department Care Team (Late st Contact Info) Description 01/12/2012 Correspondence None No Primary/Referring, Phy DME INSTRUCTION DELIVERY Social History Tobacco Use Types Packs/Day Years [...] Primary/Referring, Phy - 01/12/2012 12:00 AM CST ETES SOLUTIONS SPECIALIST documented in this encounter Plan of Treatment Upcoming Encounters Date Type Department Care Team (Late st Contact Info) Description 07/24/2024 3:00 PM CDT Appointment [facility] [address] [place] [phone] [place] [address] [place], [place] [phone] documented as of this encounter Visit Diagnoses Not on filedocumented in this encounter Care Teams Fishing Hand Relationship Specialty [place] [address] [place] [address] PCP - General Family Practice 12/29/23 documented as of this encounter
--- OUTSIDE RECORDS SUMMARY | 2024-07-13 09:53 | XMS_ITS | Encounter Summary ---
Author Organization [employer] Address [address] [place] [address] Care Team Providers Care Rehabilitation Counselor Name Role Phone Kelvin Mario MD Primary Care Provider Encounter Details Date Type Department Care Team (Late st Contact Info) Description 04/18/2012 Emergency Room External to [facility], Provider ABDOMINAL PAIN Social History Tobacco Use Types Packs/Day Years [...] as of this encounter Progress Notes * [facility], Provider - 04/18/2012 12:00 AM CST ALLY RESPONSIBLE INVESTMENT ADVISER documented in this encounter Plan of Treatment Upcoming Encounters Date Type Department Care Team (Late st Contact Info) Description 07/24/2024 3:00 PM CDT Appointment [facility] [address] [place] [phone] [place] [address] [place], [place] [phone] documented as of this encounter Visit Diagnoses Not on filedocumented in this encounter Care Teams Rehabilitation Counselor Relationship Specialty [place] [address] [place] [address] PCP - General Family Practice 12/29/23 documented as of this encounter
--- OUTSIDE RECORDS SUMMARY | 2024-07-13 09:53 | XMS_ITS | Encounter Summary ---
Author Organization [facility] Address [address] [place] [address] Care Team Providers Care Communication Instructor Name Role Phone Mago Jimenez PA-C Primary Care Provider [phone] Mago Jimenez PA-C Unavailable [phone] Twila Gallardo DO Unavailable [phone] Tam Kerns MD Unavailable [phone] Simone Gee MD Unavailable Unavailabl Dedrick Lugo MD Unavailable [phone] Mago Jimenez PA-C Unavailable [phone] No Ref-Primary, Physician Primary Care Provider Encounter Details Date Type Department Care Team (Late st Contact Info) Description 01/22/2020 MyC Medical Advice [address] [phone] Mireille Hammond, RN Mouth lesion (Primary Dx) Social History Tobacco Use Types Packs/Day Years [...] on file Legal 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 SEED CUTTER Gender Identity Not on file Sexual Orientation Not on file 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 No / Unsure 01/21/2020 10:55 AM SEED CUTTER documented as of this encounter Plan of Treatment Not on file documented as of this encounter Visit Diagnoses Diagnosis Mouth lesion- Primary Other and unspecified diseases of the oral soft tissues documented in this encounter Additional Health Concerns Infection Onset Date Last Indicated Resolved Time Rule Out COVID-19 11/15/2021 11/15/2021 11/15/2021 1:49 AM CDT Rule Out COVID-19 09/01/2023 09/01/2023 09/01/2023 5:19 PM CDT Assessment Noted Time PHQ-9 Depression Total Score: 14 020 7:03 AM CDT documented as of this encounter Care Teams Communication Instructor Relationship Specialty Start Date End Date Mago Jimenez PA-C [address] [place] [address] PCP - General Physician Horse Racetrack Manager 04/19/19 01/07/23 No Ref-Primary, Physician PCP - General 01/08/23 Mago Jimenez PA-C [address] [place] [address] Assigned PCP 07/01/19 02/12/22 Twila Gallardo DO [address] [address] Assigned OBGYN Provider 12/21/19 Tam Kerns MD [address] [place] [address] Assigned Surgical Provider 01/23/20 07/24/21 Simone Gee MD Assigned OBGYN Provider 08/17/20 11/22/20 [place] [address] [facility] [address] Assigned OBGYN Provider 11/23/20 Mago Jimenez PA-C [address] [place] [address] Assigned PCP 04/24/22 12/31/22 documented as of this encounter
--- OUTSIDE RECORDS SUMMARY | 2024-07-13 09:53 | XMS_ITS | Encounter Summary ---
Author Organization [facility] Address [address] [place] [address] Care Team Providers Care Senior International Tax Manager Name Role Phone Mago Jimenez PA-C Primary Care Provider [phone] Mago Jimenez PA-C Unavailable [phone] Twila Gallardo DO Unavailable [phone] Tam Kerns MD Unavailable [phone] Simone Gee MD Unavailable Unavailabl Dedrick Lugo MD Unavailable [phone] Mago Jimenez PA-C Unavailable [phone] No Ref-Primary, Physician Primary Care Provider Encounter Details Date Type Department Care Team (Late st Contact Info) Description 01/21/2020 MyC Medical Advice [facility] [address] [facility] [address] [place] [phone] Mago Jimenez PA-C [address] [place], [place] [phone] Social History Tobacco Use Types Packs/Day Years [...] on file Legal 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 FLAVOR EXTRACTOR Gender Identity Not on file Sexual Orientation Not on file 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 No / Unsure 01/21/2020 10:55 AM FLAVOR EXTRACTOR documented as of this encounter Plan of [...] documented as of this encounter Care Teams Senior International Tax Manager Relationship Specialty Start Date End Date Mago Jimenez PA-C [address] [place] [address] PCP - General Physician Sammying Machine Operator 04/19/19 01/07/23 No Ref-Primary, Physician PCP - General 01/08/23 Mago Jimenez PA-C [address] [place] [address] Assigned PCP 07/01/19 02/12/22 Twila Gallardo DO [address] [address] Assigned OBGYN Provider 12/21/19 Tam Kerns MD [address] [place] [address] Assigned Surgical Provider 01/23/20 07/24/21 Simone Gee MD Assigned OBGYN Provider 08/17/20 11/22/20 [place] [address] [facility] [facility] [place] [address] Assigned OBGYN Provider 11/23/20 Mago Jimenez PA-C [address] [place] [address] Assigned PCP 04/24/22 12/31/22 documented as of this encounter
--- OUTSIDE RECORDS SUMMARY | 2024-07-13 09:53 | XMS_ITS | Encounter Summary ---
Author Organization [facility] Address [address] [place] [address] Care Team Providers Care Development Expert Name Role Phone Kelvin Mario MD Primary Care Provider Encounter Details Date Type Department Care Team (Late st Contact Info) Description 12/25/2003 Hospital External to Johnson Dunn MD [facility] - Narrative Summary Social History Tobacco Use Types Packs/Day Years [...] as of this encounter Progress Notes * Johnson Dunn - 12/25/2003 12:00 AM CDT documented in this encounter Plan of Treatment Upcoming Encounters Date Type Department Care Team (Late st Contact Info) Description 07/24/2024 3:00 PM CDT Appointment [facility] [address] [place] [address] [place] [address] [place], [place] [phone] documented as of this encounter Visit Diagnoses Not on filedocumented in this encounter Care Teams Development Expert Relationship Specialty [place] [address] [place] [address] PCP - General Family Practice 12/29/23 documented as of this encounter
--- OUTSIDE RECORDS SUMMARY | 2024-07-13 09:53 | XMS_ITS | Clinical Summary ---
Author Organization [facility] Address [address] [place] [address] Care Team Providers Care Professional Advisor Name Role Phone Kelvin Mario MD Primary Care Provider [phone] Source Comments You are receiving this document as you are listed as the primary care provider,follow-up provider, or the patient has been referred to you for consultation.This is in compliance with the Medicare andMedicaid EHR Incentive Program,which states Providers who transition their patient to another setting of careor provider of care or refers their patient to another provider of care shouldprovide summary care record for each transition of care or referral. [facility] Allergies Active Allergy Reactions Criticality Noted Date Comments Bee Pollen Itching Medium 12/14/2010 Medications * This document contains information received from the source organization and may not represent a complete record from that organization. omeprazole (AKA PRILOSEC) 20 MG capsuleIndicatio ns:Esophageal reflux 20 mg twice daily for 30 days then 20 mg once a day 60 10 0 Active Additional Information Patient not taking.Reported on 12/02/2023 ALBUterol 2.5 mg/3 mL, 0.083%, nebulizer solutionIndicati ons:Unspecified asthma(493.90) ([facility]) Inhale 3 mL by mouth every 4 hours as needed. 25 Each 3 0 Active hydrocortisone 2.5 % ointmentIndicati ons:Contact dermatitis and other eczema, due to unspecified cause Apply topically 4 times a day as needed. 30 g 4 5 Active budesonide-formo terol (SYMBICORT) 160-4.5 MCG/ACT inhalerIndicatio ns:Moderate persistent asthma, unspecified whether complicated (HRC) Inhale 2 Puffs two times a day. Also 2 puffs qid prn cough max 12 puffs daily (per NHLBI/JUAN F guidelines Dulera or Symbicort required). Rinse mouth/gargle after use. 2 Each 6 4 12/30/19 25 Active montelukast (SINGULAIR) 10 MG tabletIndication s:Asthma, unspecified asthma severity, unspecified whether complicated, unspecified whether persistent (HRC) TAKE 1 TABLET(10 MG) BY MOUTH EVERY EVENING FOR ASTHMA 90 Tablet 3 5 Active hydrOXYzine HCl (ATARAX) 10 MG tabletIndication s:Anxiety (HRC) Take 1-2 Tablets (10-20 mg) by mouth three times a day as needed for Anxiety (or sedation) for up to 60 doses. 90 Tablet 5 Active ALBUterol sulfate HFA (PROAIR HFA) 108 (90 Base) MCG/ACT inhalerIndicatio ns:Asthma Inhale 2 Puffs every 4 hours as needed for Wheezing (cough). also take 15-30 min prior to exercise Indications: Asthma 8.5 g 8 5 Active Active Problems Problem Noted Date Diagnosed Date Migraine headache 12/05/2009 Overview (12/05/2009): Seen by Dr Jose Angel Bedoya, peds neurology on 11/20/[address] [facility] Allergic rhinitis 03/21/2009 Esophageal reflux 08/21/2002 Overview (08/21/2002): grade III reflux normal esophagus stomarch as of 08/08/02 Contact dermatitis and eczema 03/27/2002 Overview (10/20/2016): DERMATITIS NOS(aka ECZEMA) Asthma 01/23/2002 Overview (01/18/2007): hospitalized >3 times Asthma Action Plan (01/18/07) [...] Zone Idiopathic scoliosis and kyphoscoliosis 01/24/20 02 Encounters Date Type Department Care Team Description 05/23/2024 1:00 PM CDT E-Visit [address] [address] Kelvin Mario MD Dx: Asthma, unspecified asthma severity, unspecified whether complicated, unspecified whether persistent (HRC) from Last 3 Months Immunizations Immunization Administration Dates Next Due 4vHPV (Gardasil) 11/15/2008,06/17/2008, 9 DTP 11/11/1999, 6,01/22/1996,1995,1995 Flu Vac (3+ yrs) 02/06/2011,11/15/2008 Flu Vac Preserv Free (3+yrs) 04/18/2006 HepB Adult (Engerix-B, 20+ y rs, 3 dose series) 08/24/2022 HepB Adult (Heplisav-B, 19+ yrs, 2 dose series) 09/24/2022 HepB Ped/Adol (0-18 yrs) 02/08/1996,1995,0 1995 Hib (ActHIB) 08/12/1996 Hib (HbOC) 12/14/1999, 7,1995,1995 IPV (Polio) 01/02/2010 Influenza LAIV3 2-49 years (Flumist) 01/02/2010 MCV4 (Menactra) 04/16/2008 MMR 01/02/2010,12/14/1999,06/04/1996 OPV, Trivalent (Orimune or tOPV) 02/08/1996,11/28,1995 Tdap 02/04/2021,04/16/2008 Varicella 06/04/1996 Family History Medical History Relation Name Comments Migraines Mother Migraines Other aunt Relation Name Status Comments Mother Other Social History Tobacco Use Types Packs/Day Years Used Date Smoking Tobacco: Never Alcohol Use Standard Drinks/Week Comments No 0 (1 standard drink = 0.6 oz pur e alcohol) PHQ-2 Answer Date Recorded PHQ-2 Score 1 12/02/2023 Depression Answer Date Recor ded Last EPDS Total Score 14 04/07/2024 Last EPDS Self Harm Result Not on file 04/07 Comments No Sex and Gender Information Value Date Recorded Sex Assigned at Not on file Legal Sex Female 5:22 AM CDT Gender Identity Not on file Sexual Orientation Not on file Last Filed Vital Signs Vital Sign Reading Time Taken Comments Blood Pressure 116/72 03/16/2024 1:23 PM GRAIN BLENDER Pulse 88 03/16/2024 1:23 PM GRAIN BLENDER Temperature 36.3 C (97.4 F) 12/30/2023 1:22 PM CDT Respiratory Rate 12 04/02/2014 2:29 PM GRAIN BLENDER Oxygen Saturation 95% 01/12/2012 4:33 PM GRAIN BLENDER Inhaled Oxygen Concentration - - Weight 74.4 kg (164 lb) 12/30/2023 1:22 PM CDT Height 168.9 cm (5' 6.5) 07/03/2014 11:11 AM CD T Body Mass Index 26.07 07/03/2014 11:11 AM CDT Plan of Treatment Upcoming Encounters Date Type Department Care Team (Late st Contact Info) Description 07/24/2024 3:00 PM CDT Appointment [address] [address] [place] [address] [place] [address] Health Maintenance Due Date Last Done Comments Cervical Cancer Screening Due 1995 Hep C Screening (Preventive Services) 1995 Asthma ACT (score of 20 or higher) 1999 Adult Preventive Visit 08/08/2013 2, 01/02/2010, 03/11/2004, Additional history exists Pneumococcal Vaccine (1 of 2 - PCV) 08/08/2014 COVID-19 Vaccine (1 - season) 2023 Influenza Vaccine (Season Ended) 2024 02/06/2011, 01/02/2010, 11/15/2008, Additional history exists DTaP/Tdap/Td Vaccine (8 - Tdap) 02/04/2031 02/04/2021, 04/16/2014, 04/16/2008, Additional history exists Zoster/Shingles Vaccine (1 of 2) 08/08/2045 Hib Vaccine Completed 12/14/1999, 07/29, 05/12/1996, Additional history exists MCV4 Vaccine Aged Out 04/16/2008 No longer eligi ble based on patient's age to complete this topic HPV Vaccine Completed 11/15/2008, 05/30, 04/16/2008 IPV (Polio) Vaccine Completed 01/02/2010, 02/08/1996, 1995, Additional history exists HepB Vaccine Completed 09/24/2022, 07/30, 02/08/1996, Additional history exists HIV Screening (Preventive Services) Completed 03/23/2023 Chlamydia Discontinued 05/27/2023, 03/2022, 11/21/2013 (Not Applicable), Additional history exists HepA Vaccine Aged Out No longer eligi ble based on patient's age to complete this topic Meningococcal B Vaccine Aged Out No l onger eligible based on patient's age to complete this topic Procedures Procedure Name Priority Date/Time Associated Diagnosis Comments CHLAMYDIA, URINE (14 YEARS AND OLDER) Routine 08/16/2011 10:00 AM CDT Routine infant or child health check from Last 3 Months or Most Recently Relevant to Health Maintenance Results * CHLAMYDIA, URINE (08/16/2011 10:00 AM CDT) C.trachomatis, Urine Negative NEG [facility]UL[facility] Comment:Test Performed by Tr anscription Mediated Amplification Urine specimen (specimen) 08/16/2011 10:00 AM CDT 08/16/2011 10:04 AM CDT Johnson Dunn MD LAB_[email or web address] Final Result JULIANA [address] [address] from Last 3 Months or Most Recently Relevant to Health Maintenance Insurance [facility] Advance Directives * No Code Status (Latest Code Status on File) Date Activated Date Inactivated Comments 02/18/2004 2:49 PM 02/18/2004 3:49 PM Care Teams Professional Advisor Relationship Specialty [place] [address] [place], [place] [phone] PCP - General Family Practice 12/29/23
--- OUTSIDE RECORDS SUMMARY | 2024-07-13 09:53 | XMS_ITS | Encounter Summary ---
Author Organization [facility] Address [address] [place] [address] Care Team Providers Care Control Systems Developer Name Role Phone Mago Jimenez PA-C Primary Care Provider [phone] Mago Jimenez PA-C Unavailable [phone] Twila Gallardo DO Unavailable [phone] Tam Kerns MD Unavailable [phone] Simone Gee MD Unavailable Unavailabl Dedrick Lugo MD Unavailable [phone] Mago Jimenez PA-C Unavailable [phone] No Ref-Primary, Physician Primary Care Provider Reason for Visit * Reason Onset Date Comments Refill Request 08/05/2019 Encounter Details Date Type Department Care Team (Late st Contact Info) Description 08/05/2019 MyC Refill [facility] [address] 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 No / Unsure 08/01/2019 3:05 PM CDT documented as of this encounter Miscellaneous Notes * Telephone Encounter - Mago Jimenez PA-C - 08/05/2019 8:23 PM CDT Refill already responded by other means. Mago Jimenez PA-C documented in this encounter Plan of Treatment [...] Assessment Noted Time PHQ-9 Depression Total Score: 21 020 7:04 AM CDT documented as of this encounter Care Teams Control Systems Developer Relationship Specialty Start Date End Date Mago Jimenez PA-C [address] [place] [address] PCP - General Physician Grout Pump Operator 04/19/19 01/07/23 No Ref-Primary, Physician PCP - General 01/08/23 Mago Jimenez PA-C [address] [place] [address] Assigned PCP 07/01/19 02/12/22 Twila Gallardo DO [address] [place] [address] Assigned OBGYN Provider 12/21/19 Tam Kerns MD [address] [place] [address] Assigned Surgical Provider 01/23/20 07/24/21 Simone Gee MD Assigned OBGYN Provider 08/17/20 11/22/20 [place] [address] [place] [address] Assigned OBGYN Provider 11/23/20 Mago Jimenez PA-C [address] [facility] [place] [address] Assigned PCP 04/24/22 12/31/22 documented as of this encounter
--- OUTSIDE RECORDS SUMMARY | 2024-07-13 09:53 | XMS_ITS | Encounter Summary ---
Author Organization [facility] Address [address] [place] [address] Care Team Providers Care Fluorescent Lighting Model Maker Name Role Phone Mago Jimenez PA-C Primary Care Provider [phone] Mago Jimenez PA-C Unavailable [phone] Twila Gallardo DO Unavailable [phone] Tam Kerns MD Unavailable [phone] Simone Gee MD Unavailable Unavailabl Dedrick Lugo MD Unavailable [phone] Mago Jimenez PA-C Unavailable [phone] Ref-Primary, Physician Primary Care Provider Reason for Visit * Reason Comments Medication Refill Encounter Details Date Type Department Care Team (Late st Contact Info) Description 12/07/2019 Refill [facility] [address] [facility] [address] [place] [phone] Mago Jimenez PA-C [address] [place], [place] [phone] Medication Refill Social History Tobacco Use Types [...] on file Legal 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 SUPPORT ANALYST Gender Identity Not on file Sexual Orientation Not on file 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 Mago Jimenez PA-C * Telephone Encounter - Ham Sy RN - 12/08/2019 12:40 PM CDT Pending Prescriptions: Disp Refills albuterol (PROAIR HFA/PROVENTIL HFA/VENTOL*18 g 0 Sig: INHALE 2 PUFFS INTO THE LUNGS EVERY 4 HOURS NEEDED FOR SHORTNESS OF BREATH OR DIFFICULT BREATHING OR WHEEZING Routing refill request to provider for review/approval because: Aishwarya given x1 and patient did not follow up, please advise. ACT Total Scores 04/27/2019 ACT TOTAL SCORE (Goal Greater than or Equal to 20) 6 In the past 12 months, how many times did you visit the emergency room for your asthma without being admitted to the hospital? 2 In the past 12 months, how many times were you hospitalized overnight because of your asthma? 1 documented in this encounter Plan of Treatment [...] documented as of this encounter Care Teams Fluorescent Lighting Model Maker Relationship Specialty Start Date End Date Mago Jimenez PA-C [address] [facility] [place] [address] PCP - General Physician Offset Printer 04/19/19 01/07/23 No Ref-Primary, Physician PCP - General 01/08/23 Mago Jimenez PA-C [address] [facility] [place] [address] Assigned PCP 07/01/19 02/12/22 Twila Gallardo DO [address] [place] [address] Assigned OBGYN Provider 12/21/19 Tam Kerns MD [address] [place] [address] Assigned Surgical Provider 01/23/20 07/24/21 Simone Gee MD Assigned OBGYN Provider 08/17/20 11/22/20 [place] [address] [facility] [phone] Assigned OBGYN Provider 11/23/20 Mago Jimenez PA-C [address] [facility] [place] [address] Assigned PCP 04/24/22 12/31/22 documented as of this encounter
--- OUTSIDE RECORDS SUMMARY | 2024-07-13 09:53 | XMS_ITS | Encounter Summary ---
Author Organization [facility] Address [address] [place] [address] Care Team Providers Care C Web Developer Name Role Phone Mago Jimenez PA-C Primary Care Provider [phone] Mago Jimenez PA-C Unavailable [phone] Twila Gallardo DO Unavailable [phone] Tam Kerns MD Unavailable [phone] Simone Gee MD Unavailable Unavailabl e Dedrick Siegel MD Unavailable [phone] Mago Jimenez PA-C Unavailable [phone] No Ref-Primary, Physician Primary Care Provider Encounter Details Date Type Department Care Team (Late st Contact Info) Description 07/12/2019 MyC Medical Advice [facility] [address] [place] [phone] Twila Gallardo DO [address] [place] [address] [address] [place] [address] Social History Tobacco Use Types Packs/Day Years Used Date Smoking Tobacco: Never Smokeless Tobacco: Never Alcohol Use Standard Drinks/Week Comments Not Currently 0 (1 standard drink = 0.6 oz pur e alcohol) PHQ-2 Answer Date Recorded PHQ-2 Score 3 04/27/2019 Education Answer Date Recorded What is the highest level of school you have completed or the highest degree you have received? 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 No / Unsure 06/19/2019 5:31 AM CDT documented as of this encounter Miscellaneous Notes * Telephone Encounter - Loulou Cowan, RN - 07/12/2019 10:31 AM CDT Patient is a 23 year old, . Patient had a vaginal delivery on 06/20/2019 at 39 weeks and 2 days. Patient is mycharting in with severe rectal pain. Loulou Cowan RN on 07/12/2019 at 10:39 AM documented in this encounter Plan of Treatment Not on file documented as of this encounter Visit Diagnoses Not on filedocumented in this encounter Additional Health Concerns Infection Onset Date Last Indicated Resolved Time Rule Out COVID-19 11/15/2021 11/15/2021 11/15/2021 1:49 AM CDT Rule Out COVID-19 09/01/2023 09/01/2023 09/01/2023 5:19 PM CDT Assessment Noted Time PHQ-9 Depression Total Score: 6 04/28/19 20 7:03 AM SALES REPRESENTATIVE [employer] documented as of this encounter Care Teams C Web Developer Relationship Specialty Start Date End Date Mago Jimenez PA-C [address] [place] [address] PCP - General Physician Shop Estimator 04/19/19 01/07/23 No Ref-Primary, Physician PCP - General 01/08/23 Mago Jimenez PA-C [address] [place] [address] Assigned PCP 07/01/19 02/12/22 Twila Gallardo DO [address] [place] [address] Assigned OBGYN Provider 12/21/19 Tam Kerns MD [address] [place], [place] [address] Assigned Surgical Provider 01/23/20 07/24/21 Simone Gee MD Assigned OBGYN Provider 08/17/20 11/22/20 [place] [address] [facility] [phone] Assigned OBGYN Provider 11/23/20 Mago Jimenez PA-C [address] [facility] [place] [address] Assigned PCP 04/24/22 12/31/22 documented as of this encounter
--- OUTSIDE RECORDS SUMMARY | 2024-07-13 09:53 | XMS_ITS | Clinical Summary ---
Author Organization [facility] Address [address] [place] [address] Care Team Providers Care Handle Rounder Operator Name Role Phone Unavailable Primary Care Provider Unavailabl e Source Comments Patient records contain information from all sites at [facility]. For routine questions regarding patient records, call [phone] during business hours, M-F 8:00 AM - 5:00 PM Central Time. Record requests for emergency care only can be directed to [phone] at any time.[facility] Immunizations Immunization Administration Dates Next Due Td Preservative Free (TENIVAC, DECAVAC) 04/16/19 15 Social History Tobacco Use Types Packs/Day Years Used Date Smoking Tobacco: Never Nutrition Answer Date Recorded Nutrition: EVOO Fat Source Unknown 08/17 Nutrition: Servings of Fruits/Vegetables per Day Not on file 08/17/2022 Dental Answer Date Recorded Dental: Regular Dentist Unknown 08/18/19 23 Comments Unknown Sex and Gender Information Value Date Recorded Sex Assigned at Not on file Legal Sex 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 Gender Identity Not on file Sexual Orientation Not on file Last Filed Vital Signs Vital Sign Reading Time Taken Comments Blood Pressure 106/63 04/16/2014 1:14 PM CAT CRACKER OPERATOR Pulse 92 04/16/2014 1:14 PM CAT CRACKER OPERATOR Temperature - - Respiratory Rate - - Oxygen Saturation - - Inhaled Oxygen Concentration - - Weight 60 kg (132 lb 4.4 oz) 04/16/2014 1:14 PM CAT CRACKER OPERATOR Height 168.5 cm (5' 6.34) 04/16/2014 1:14 PM CS T Body Mass Index 21.13 04/16/2014 1:14 PM CAT CRACKER OPERATOR Plan of Treatment Health Maintenance Due Date Last Done Comments Cervical/Vaginal Cancer Screening 1995 HIV Screening 1995 Hepatitis C Screening 1995 COVID-19 Vaccine ( season) 2023 Influenza Vaccine (#1) 2023 1, 02/06/2011, 02/06/2011, Additional history exists Depression Screening (Annual PHQ-2) 02/29/2024 DTaP,Tdap,and Td Vaccines (9 - Td or Tdap) 02/04/2031 02/04/2021, 04/16/2014, 04/16/2008, Additional history exists HPV Vaccines Completed 11/15/2008, 10/29, 06/17/2008, Additional history exists IPV Vaccines Completed 01/02/2010, 06/2009, 02/08/1996, Additional history exists Hepatitis B Screening Discontinued 12/19/2018 Hepatitis B Vaccines Completed 09/24/2022, 08/24/2022, 02/08/1996, Additional history exists Pneumococcal vaccine (0-49 years) Aged Out No longer eligible based on patient's age to complete this topic Insurance [facility]
--- OUTSIDE RECORDS SUMMARY | 2024-07-13 09:53 | XMS_ITS | Encounter Summary ---
Author Organization [facility] Address [address] [place] [address] Care Team Providers Care Dictating Machine Mechanic Name Role Phone Tamera Kiran Lorna Aishwarya AMOS HOT ROLL LAMINATOR Unavailable Unavailable Mago Jimenez PA-C Primary Care Provider [phone] Mago Jimenez PA-C Unavailable [phone] Twila Gallardo DO Unavailable [phone] Tam Kerns MD Unavailable [phone] Simone Gee MD Unavailable Unavailabl Dedrick Lugo MD Unavailable [phone] Mago Jimenez PA-C Unavailable [phone] No Ref-Primary, Physician Primary Care Provider Encounter Details Date Type Department Care Team (Late st Contact Info) Description 06/19/2019 MyC Medical Advice [address] [phone] Miroslava, Hli, DIET COUNSELOR Social History Tobacco Use Types Packs/Day Years [...] on file Legal 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 ONCOLOGY NAVIGATOR Gender Identity Not on file Sexual Orientation [...] AM CDT documented as of this encounter Plan of [...] Total Score: 6 04/28/19 20 7:03 AM ONCOLOGY NAVIGATOR documented as of this encounter Care Teams Dictating Machine Mechanic Relationship Specialty Start Date End Date Mago Jimenez PA-C [address] [place] [address] PCP - General Physician Market Consultant 04/19/19 01/07/23 No Ref-Primary, Physician PCP - General 01/08/23 Lorna Thurman APRN CNP Assigned PCP 06/02/18 06/30/19 Mago Jimenez PA-C [address] [place] [address] Assigned PCP 07/01/19 02/12/22 Twila Gallardo DO [address] [address] Assigned OBGYN Provider 12/21/19 Tam Kerns MD [address] [place] [address] Assigned Surgical Provider 01/23/20 07/24/21 Simone Gee MD Assigned OBGYN Provider 08/17/20 11/22/20 [place] [address] [facility] [place] [phone] Assigned OBGYN Provider 11/23/20 Mago Jimenez PA-C [address] [place] [address] Assigned PCP 04/24/22 12/31/22 documented as of this encounter
--- OUTSIDE RECORDS SUMMARY | 2024-07-13 09:53 | XMS_ITS | Encounter Summary ---
Author Organization [place] Address [address] [place] [address] Care Team Providers Care Associate Professor Name Role Phone Mago Jimenez PA-C Primary Care Provider [phone] Mago Jimenez PA-C Unavailable [phone] Twila Gallardo DO Unavailable [phone] Tam Kerns MD Unavailable [phone] Simone Gee MD Unavailable Unavailabl Dedrick Lugo MD Unavailable [phone] Mago Jimenez PA-C Unavailable [phone] No Ref-Primary, Physician Primary Care Provider Encounter Details Date Type Department Care Team (Late st Contact Info) Description 08/14/2019 [facility] Medical Advice [address] [place] [phone] Gricel Arzola MA Social History Tobacco Use Types Packs/Day Years [...] on file Legal 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 [employer] Gender Identity Not on file Sexual Orientation [...] PM CDT documented as of this encounter Plan [...] documented as of this encounter Care Teams Associate Professor Relationship Specialty Start Date End Date Mago Jimenez PA-C [address] [place] [address] PCP - General Physician Cloth Cutter 04/19/19 01/07/23 No Ref-Primary, Physician PCP - General 01/08/23 Mago Jimenez PA-C [address] [place] [address] Assigned PCP 07/01/19 02/12/22 Twila Gallardo DO [address] [address] Assigned OBGYN Provider 12/21/19 Tam Kerns MD [address] [place] [address] Assigned Surgical Provider 01/23/20 07/24/21 Simone Gee MD Assigned OBGYN Provider 08/17/20 11/22/20 [place] [address] [place] [phone] Assigned OBGYN Provider 11/23/20 Mago Jimenez PA-C [address] [place] [address] Assigned PCP 04/24/22 12/31/22 documented as of this encounter
--- OUTSIDE RECORDS SUMMARY | 2024-07-13 09:53 | XMS_ITS | Encounter Summary ---
Author Organization [facility] Address [address] [place] [address] Care Team Providers Care Tubing Supervisor Name Role Phone Mago Jimenez PA-C Primary Care Provider [phone] Mago Jimenez PA-C Unavailable [phone] Twila Gallardo DO Unavailable [phone] Tam Kerns MD Unavailable [phone] Simone Gee MD Unavailable Unavailabl Dedrick Lugo MD Unavailable [phone] Mago Jimenez PA-C Unavailable [phone] No Ref-Primary, Physician Primary Care Provider Reason for Visit * Reason Onset Date Comments Medication Request 10/29/2019 albuterol Encounter Details Date Type Department Care Team (Late st Contact Info) Description 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 Not on file Not on file documented as of this encounter Miscellaneous Notes * Telephone Encounter - Aicha Gaspar RN - 10/30/2019 3:41 PM CDT Pending Prescriptions: Disp Refills albuterol (PROAIR HFA/PROVENTIL HFA/VENTOL*18 g 3 Sig: Inhale 2 puffs into the lungs every 4 hours as needed for shortness of breath / dyspnea or wheezing Routing refill request to provider for review/approval because: Labs out of range: ACT ACT Total Scores 06/26/2018 08/23/2018 04/27/2019 ACT TOTAL SCORE (Goal Greater than or Equal to 20) 6 5 6 In the past 12 months, how many times did you visit the emergency room for your asthma without being admitted to the hospital? 3 1 2 In the past 12 months, how many times were you hospitalized overnight because of your asthma? 0 0 1 albuterol (PROAIR HFA/PROVENTIL HFA/VENTOLIN HFA) 108 (90 Base) MCG/ACT inhaler 18 g 3 08/21/2019 No Sig - Route: Inhale 2 puffs into the lungs every 4 hours as needed for shortness of breath / dyspnea or wheezing - Inhalation Sent to pharmacy as: Albuterol Sulfate HFA 108 (90 Base) MCG/ACT Aerosol Solution (PROAIR HFA/PROVENTIL HFA/VENTOLIN HFA) Class: E-Prescribe Notes to Pharmacy: Pharmacy may dispense brand covered by insurance (Proair, or proventil or ventolin or generic albuterol inhaler) Order: [id number] E-Prescribing Status: Receipt confirmed by pharmacy (08/21/2019 ??4:00 PM CDT) Aicha Gaspar RN * Telephone Encounter - Ghazal Spann - 10/29/2019 3:03 PM CDT Reason for Call: Medication or medication refill: Do you use a [facility]? Name of the pharmacy and phone number for the current request: [facility] Corona Name of the medication requested: albuterol Other request: Patient calling stating that Pharmacy told her she does not have any refills left. Please advise. Can we leave a detailed message on this number? YES Phone number patient can be reached at: Cell number on file: Telephone Information: Best Time: Any Call taken on 10/29/2019 at 3:03 PM by Ghazal Childs documented in this encounter Plan of Treatment [...] documented as of this encounter Care Teams Tubing Supervisor Relationship Specialty Start Date End Date Mago Jimenez PA-C [address] [place] [address] PCP - General Physician Crushing Machine Operator 04/19/19 01/07/23 No Ref-Primary, Physician PCP - General 01/08/23 Mago Jmienez PA-C [address] [place] [address] Assigned PCP 07/01/19 02/12/22 Twila Gallardo DO [address] [address] Assigned OBGYN Provider 12/21/19 Tam Kerns MD [address] [place], [place] [address] Assigned Surgical Provider 01/23/20 07/24/21 Simone Gee MD Assigned OBGYN Provider 08/17/20 11/22/20 [place] [address] [facility] [place] [phone] Assigned OBGYN Provider 11/23/20 Mago Jimenez PA-C [address] [place], [place] [address] Assigned PCP 04/24/22 12/31/22 documented as of this encounter
[2024-07-13 09:58] VITALS: BP 120/79; PULSE 71; RESP 24; TEMP 37.2; O2SAT 89; BMI 23.9
--- NOTE | 2024-07-13 10:04 | ED_ITS ---
HPI - SOB/Dyspnea General Time Seen by Provider: 10:04 Date Seen: 07/13/24 Chief Complaint: Shortness of Breath/Dyspnea Stated Complaint: possible asthma attack Time Seen by Provider: 07/13/24 10:04 Source: patient and RN notes reviewed Mode of arrival: ambulatory Limitations: no limitations History of Present Illness HPI Narrative: This 28-year-old female with underlying history of asthma is coming in with shortness of breath. Her daughter has been sick with fevers, was diagnosed with thrush. She started having a sore throat yesterday, has developed congestion, coughing and shortness of breath. She has not used a nebulizer but did use her albuterol about 40 minutes to arrival. She does have environmental triggers, take Singulair, also uses Symbicort for maintenance medicine. She does not always remember to take her Symbicort. MD elicited complaint: shortness of breath, cough and asthma attack Pertinent past history: asthma Related Data Home Medications ?Medication ?Instructions ?Recorded ?Confirmed 06/22/23 Previous Rx's ?Medication ?Instructions ?Recorded albuterol sulfate 2.5 mg/0.5 mL 2.5 mg (0.5 mL) inhalation Q4H PRN 06/22/23 solution for nebulization #30 ea albuterol sulfate 90 mcg/actuation 2 inh inhalation Q2-3H PRN 06/22/23 aerosol inhaler shortness of breath or wheezing #8.5 grams oseltamivir 75 mg capsule (Tamiflu) 75 mg PO DAILY #7 caps 06/22/23 prednisone 20 mg tablet 40 mg (2 x 20 mg) PO DAILY 4 days 06/22/23 #8 tabs prednisone 20 mg tablet 20 mg PO BID #10 tabs 07/13/24 Allergies Allergy/AdvReac Type Severity Reaction Status Date / Time No Known Drug Allergies Allergy Verified 07/13/24 09:57 Review of Systems Status of ROS: Reports: 6 or more systems reviewed and unremarkable except as noted in History and below [facility] Medical History (Updated 07/13/24 @ 12:42 by Latisha Burgess MD) Asthma ?J45.909 - Unspecified asthma, uncomplicated (ICD-10) Social History Smoking Status: Never smoker Second hand tobacco smoke exposure: No How often do you have a drink containing alcohol: never How often do you have six or more drinks on one occasion: Never AUDIT-C Alcohol total score: 0 Non-prescribed substance use: denies use service: No Exam Const: Vital Signs, click to edit/add: Vital Signs - 24 hr 07/13/24 09:58 07/13/24 10:07 07/13/24 10:12 Temperature 99 F Pulse Rate [Pulse Oximeter] 71 Respiratory Rate 24 Blood Pressure [Ri ght Upper Arm] 120/79 Pulse Oximetry 89 94 94 Oxygen Delivery Me thod Room Air Room Air This 28-year-old female is alert, interactive, no apparent distress. Her oxygenation was 89% on arrival. She does have some audible nasal congestion but is able to speak in complete sentences. Voice is not hoarse. No stridor noted. Sclera clear, conjugate gaze. Oropharynx with normal mucosa, scarring from prior tonsillectomy, posterior pharynx is normal. Neck is supple, no adenopathy or masses. Lungs actually are clear somewhat prolonged expiratory phase but without wheezing or crackles. CV regular rate and rhythm, no murmur. Documenting provider has reviewed patient's vital signs: yes Course Course ED Course: Will give patient DuoNeb, look at possible infectious etiology including viral versus bacterial. Will get a portable chest x-ray. She of a triple viral swab. Will monitor her on pulse oximetry. Reevaluation(s) Time of Reevaluation #1: 12:40 Reevaluation #1: Have reviewed with patient her normal workup. Chest x-ray is not revealing any active pneumonia, white blood count normal, triple viral swab negative. Respiratory therapy was here to discuss inhalers and use, provided her with a spacer. She was taking her inhalers without a spacer. She has been stable here, not hypoxic. She is requesting a work note. Vital Signs Vital signs: Initial Vital Signs Respiratory Effort Normal 07/13/24 09:52 Respiratory Depth Normal 07/13/24 09:52 Respiratory Pattern Normal 07/13/24 09:52 Vital Signs Temperature 99 F 07/13/24 09:58 Pulse Rate 71 07/13/24 09:58 Respiratory Rate 24 07/13/24 09:58 Blood Pressure 120/79 07/13/24 09:58 Pulse Oximetry 89 07/13/24 09:58 Oxygen Delivery Method Room Air 07/13/24 09:58 Temperature 99 F 07/13/24 09:58 Pulse Rate 71 07/13/24 09:58 Respiratory Rate 24 07/13/24 09:58 Blood Pressure 120/79 07/13/24 09:58 Pulse Oximetry 94 07/13/24 10:12 Oxygen Delivery Method Room Air 07/13/24 10:07 Medications Administered Medications: Discontinued Medications Generic Name Dose Route Start Last Admin Trade Name Priya PRN Reason Stop Dose Admin Albuterol/Ipratropium 1 neb 07/13/24 10:12 07/13/24 10:12 Iprat-Albut 0.5-2.5 Mg/3 Ml Neb IH 07/13/24 10:13 1 neb ONCE ONE Administration MDM - SOB/Dyspnea Lab Data Attestation: I reviewed the patient's lab results. Labs: Lab Results 07/13/24 07/13/24 07/13/24 Range/Units 10:27 10:40 10:45 WBC 8.40 (4.50-11.00) K/uL RBC 4.95 (4.00-5.20) m/uL Hgb 14.4 (12.0-16.0) gm/dL Hct 41.6 (33.0-51.0) % MCV 84 (80-100) fL MCH 29 (26-34) pg MCHC 35 (32-36) gm/dL RDW Coeff of [place] 13.4 (11.5-15.5) % Plt Count 238 (140-440) K/uL Neut % (Auto) 70.1 (42.0-72.0) % Lymph % (Auto) 15.0 L (20-44) % [place] % (Auto) 7.0 (0.0-11.0) % Eos % (Auto) 7.3 H (0.0-7.0) % Baso % (Auto) 0.5 (0.0-3.0) % Neut # (Auto) 5.89 (1.7-7.0) K/uL Lymph # (Auto) 1.30 (0.90-2.90) K/uL [place] # (Auto) 0.60 (0.00-0.90) K/UL Eos # (Auto) 0.60 H (0.00-0.50) K/uL Baso # (Auto) 0.04 (0.00-0.30) K/uL Abs Immat Gran (auto) 0.01 (0.00-0.30) K/uL Imm/Tot Granulo (auto) 0.1 % C-Reactive Protein 0.7 (0.5-1.0) mg/dL Urine HCG, Qual Negative (Negative) SARS-CoV-2 (PCR) Negative SARS-CoV-2 (Negative) Influenza Type A (PCR) Negative PCR FLU A (Negative) Influenza Type B (PCR) Negative PCR FLU B (Negative) RSV (PCR) Negative PCR RSV (Negative) Imaging Data Chest x-ray: Attestation: I have reviewed the pertinent imaging results. My impression: I see no acute pathology on preliminary review of this portable chest x-ray. Radiologist's impression: Patient: WHITNEY ARRIOLA Facility:?[facility] Patient ID:?[id number] Site Patient ID:?[id number]. Site :?[id number] Study:?XRay-Chest PCXR-07/13/2024 12:01:05 PM Ordering Physician:?Aditya Good Final Report: INDICATION: Asthma, cough, hypoxia. TECHNIQUE: Chest view(s) COMPARISON: None. FINDINGS: Cardiomediastinal silhouette and pulmonary vasculature are normal. Streaky right basilar opacities, likely atelectasis. No focal consolidation. No layering pleural effusion. No pneumothorax. No acute chest wall abnormality. IMPRESSION: Streaky right basilar opacities, likely atelectasis. No focal consolidation. Dictated by Kim Rocha MD @ 07/13/2024 12:20:44 PM (Electronic Signature) Discharge Plan Discharge Clinical Impression: Asthma with acute exacerbation Qualifiers: Asthma severity: unspecified severity Asthma persistence: unspecified Qualified Code(s): J45.901 - Unspecified asthma with (acute) exacerbation Patient Disposition: Home, Self-Care Condition: Stable Instructions: Asthma (ED) Additional Instructions: Need to take your Symbicort every day as prescribed. Need to use spacer with all inhalers for better delivery of medication. Take the course of prednisone as prescribed, take with food to help protect your stomach. Prescriptions: New prednisone 20 mg tablet 20 mg PO BID Qty: 10 0RF No Action oseltamivir [Tamiflu] 75 mg capsule 75 mg PO DAILY Qty: 7 0RF albuterol sulfate 2.5 mg/0.5 mL solution for nebulization 2.5 mg inhalation Q4H PRNQty: 30 0RF Rx Instructions: for up to 3 doses albuterol sulfate 90 mcg/actuation HFA aerosol inhaler 2 inh inhalation Q2-3H PRN (Reason: shortness of breath or wheezing) Qty: 8.5 1RF prednisone 20 mg tablet 40 mg PO DAILY 4 Days Qty: 8 1RF Follow Up/Referrals: Provider,Not a Local [Primary Care Provider] - Stand Alone Forms: [facility], [facility] Info Inst[facility]
[2024-07-13 10:07] VITALS: O2SAT 94
[2024-07-13 10:12] VITALS: O2SAT 94
[2024-07-13] MEDS: IPRAT-ALBUT 0.5-2.5 MG/3 ML NEB 1 NEB IH (10:12)
--- NOTE | 2024-07-13 10:12 | CRLHL7_ITS ---
For Patients: As a result of the Cures Act, medical imaging exams and procedure reports are released immediately into your electronic medical record. You may view this report before your referring provider. If you have questions, please contact your health care provider. INDICATION: Asthma, cough, hypoxia. TECHNIQUE: Chest view(s) COMPARISON: None. FINDINGS: Cardiomediastinal silhouette and pulmonary vasculature are normal. Streaky right basilar opacities, likely atelectasis. No focal consolidation. No layering pleural effusion. No pneumothorax. No acute chest wall abnormality. IMPRESSION: Streaky right basilar opacities, likely atelectasis. No focal consolidation. Dictated by Kim Rocha MD @ 07/13/2024 12:20:44 PM (Electronically Signed)
--- NOTE | 2024-07-13 10:32 | RESP.RT ---
DuoNeb given and MDI spacer given and education on using a spacer was given to the patient. She states that she does not always remember to take inhalers as scheduled and is fairly noncompliant. She did state that this was the 2nd time in the past year that she has been in the ED for breathing issues usually in the spring and summer time dealing with allergies.
[2024-07-13 10:35] LABS: Basophils Absolute Auto 0.04 K/uL (0.00-0.30); Basophils Percent Auto 0.5 % (0.0-3.0); Eosinophils Percent Auto 7.3 % (0.0-7.0); Hematocrit 41.6 % (33.0-51.0); Hemoglobin* 14.4 gm/dL (12.0-16.0); Immature Granulocytes Abs Auto 0.01 K/uL (0.00-0.30); Immature Granulocytes Pct Auto 0.1 %; Mean Corpuscular HGB Conc 35 gm/dL (32-36); Mean Corpuscular Hemoglobin 29 pg (26-34); Mean Corpuscular Volume 84 fL (80-100); Neutrophils Absolute Auto 5.89 K/uL (1.7-7.0); Neutrophils Percent Auto 70.1 % (42.0-72.0); Platelet Count* 238 K/uL (140-440); RDW Coefficient of Variation % 13.4 % (11.5-15.5); Red Blood Count 4.95 m/uL (4.00-5.20)
[2024-07-13 10:37] LABS: Slide Review Reflex No
[2024-07-13 11:02] LABS: C Reactive Protein* 0.7 mg/dL (0.5-1.0)
[2024-07-13 11:12] LABS: Ur HCG Qualitative* Negative (Negative)
[2024-07-13 11:26] LABS: PCR FLU A Negative PCR FLU A (Negative); PCR FLU B Negative PCR FLU B (Negative); PCR RSV Negative PCR RSV (Negative); SARS PCR* Negative SARS-CoV-2 (Negative)
== END 2024-07-13 12:54 | disposition home or self-care (01) ==
PROVIDERS: Emergency Provider Family Medicine
DX: J45.901 Unspecified asthma with (acute) exacerbation (principal); Z79.51 Long term (current) use of inhaled steroids
CPT/HCPCS: 36415; 71045; 81025; 85025; 86140; 87631; 94640; 94664; 94761; 99284